=== PATIENT | female | born 1940 | race Caucasian/White ===

== ENCOUNTER → 2018-08-20 15:01 | Outpatient (CLI) | payer MEDICARE, SELFPAY ==
--- NOTE | 2018-08-20 | DI.MG.S_ITS ---
BILATERAL DIGITAL SCREENING MAMMOGRAM 3D/2D WITH CAD POST LUMPECTOMY: 08/20/2018 CLINICAL: Routine screening. Personal history of left breast cancer. Comparison is made to exams dated: 08/19/2017 mammogram, 08/07/2016 mammogram, and 08/04/2015 mammogram - [facility]. There are scattered fibroglandular elements in both breasts. Current study was also evaluated with a Computer Aided Detection (CAD) system. There are benign post operative findings in the left breast. There also is a benign biopsy clip in the right breast. No significant masses, calcifications, or other findings are seen in either breast. There has been no significant interval change. IMPRESSION: There is no mammographic evidence of malignancy. A 1 year screening mammogram is recommended. This exam was interpreted at Station ID: [id number]. NOTE: For mammograms, a report in lay terms will be sent to the patient. Approximately 15% of breast malignancies will not be visualized mammographically. In the management of a palpable breast mass, a negative mammogram must not discourage biopsy of a clinically suspicious lesion. Electronically Signed By: Mj nino/yumi:08/20/2018 17:10:27 copy to: COY MONTILLA letter sent: Normal Exam ACR BI-RADS Category 2: Benign Finding(s) 3342F
== END ==
PROVIDERS: PCP Physician Assistant; Visit Provider Physician Assistant
DX: Z12.31 Encounter for screening mammogram for malignant neoplasm of breast (principal); Z85.3 Personal history of malignant neoplasm of breast
CPT/HCPCS: 77063; 77067

== ENCOUNTER → 2018-09-22 12:12 | Oncology outpatient (ONC) | payer MEDICARE, SELFPAY ==
--- NOTE | 2018-09-22 12:37 | ONC.APRN.PN ---
PN -Subjective Interval history: The patient is a 77 year old Female who is being seen in the clinic 09/22/2018 for surveillance. 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 pt did try tamoxifen, had untolerable side effects she elected to DC, then she started taking once again, had untolerable side effects and DC'd prior to appointment 10/03/2016. Over all the pt reports she is doing well. No weight loss, no new lumps or bumps. No fatigue, cough, fever, chills. No nausea, abd pain. Appetite stable, weight stable. No changes with bladder/bowel. PCP watches her blood sugars . She had a bilateral screening mammogram 08/20/2018 which was without any evidence of malignancy. One year screening mammogram is recommended. Past Medical History The patient's past medical history is significant for: 1. 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 2. Wide local excision 11/25/2013 with a less than 1 mm focus of high-grade DCIS 0.5 cm from the closest margin and no invasive malignancy. 3. Bilateral breast reduction, 2000 or 2001. 4. A&P repair with hysterectomy at age 30. 5. AB 0. 6. Other surgeries, hypertension, and hot flashes in her 50s. Past Surgical History The patient's past surgical history includes: 3. Bilateral breast reduction, 2000 or 2001. 4. A&P repair with hysterectomy at age 30. Home Medications and Allergies Home Medications Medication Instructions Recorded Confirmed Type calcium carbonate 600 mg PO TID #0 09/26/17 History Vitamin D3 4,000 units 09/22/18 History aspirin 650 mg PO Q4-6H PRN 09/22/18 09/22/18 History benazepril-hydrochlorothiazide 1 tab PO DAILY 09/22/18 09/22/18 History [Lotensin HCT] diclofenac sodium [Voltaren] 09/22/18 History omega 9-cxo-ksx-fish oil [Fish Oil] 09/22/18 History potassium chloride 10 meq PO DAILY 09/22/18 09/22/18 History Allergies Allergy/AdvReac Type Severity Reaction Status Date / Time oxycodone Allergy Mild RASH Unverified 01/29/18 12:27 adhesive AdvReac Mild RASH Unverified 01/29/18 12:27 Exam - Constitutional positive no acute distress - Routine HEENT Exam Eye: Present: conjunctivae pink. Absent: conjunctival icterus, scleral injection ENT: Present: mucous membranes moist, oropharynx clear - Routine Neck Exam Present: supple. Absent: lymphadenopathy - Routine Chest/Breast/Axilla Exam Chest wall exam standard: Absent: tenderness, mass Breast: Absent: mass, swelling, erythema Axillae: Absent: lymphadenopathy, mass, tenderness - Routine Respiratory Exam Present: Clear to auscultation bilaterally. Absent: rales, rhonchi, wheezes - Routine Cardiovascular Exam Present: RRR, S1, S2. Absent: murmur, gallop, rubs, JVD - Routine Abdominal Exam Present: soft, normoactive bowel sounds. Absent: tenderness, distended, organomegaly, mass - Routine Extremities Exam Absent: edema, calf tenderness - Routine Skin Exam Present: intact. Absent: petechiae, rash - Routine Neurological Exam Present: alert, oriented X3 - Routine Psychiatric Exam Present: normal affect Results - Imaging Additional studies: Procedures Other diagnostic procedures on breast (11/25/13) Subtotal mastectomy (11/25/13) Assessment and Plan (1) DCIS (ductal carcinoma in situ) of breast Current visit: Yes Status: Acute The patient is a 77-year-old female who carries a diagnosis of DCIS. She presents today for surveillance visit. Reassuringly she has no clinical signs or symptoms of disease recurrence. Previously she had elected to discontinue tamoxifen due to intolerable side effects. This was discussed again at her visit today she has no desire to take tamoxifen. She understands taking tamoxifen would reduce her risk of recurrence. Patient states Its a quality of life issue. Mammogram August 20, 2018 was without evidence of malignancy. Recommendation is continue with annual screening mammography. RTC in one year for provider visit. Pt has appt next week for annual wellness with PCP at [facility] - Time Spent with Patient 25 mins
[2018-09-22 12:46] VITALS: BP 142/78; PULSE 68; RESP 18; TEMP 36.2; O2SAT 97
== END ==
PROVIDERS: PCP Physician Assistant; Visit Provider Nurse Practitioner Gerontology
DX: Z09 Encounter for follow-up examination after completed treatment for conditions other than malignant neoplasm (principal); Z86.000 Personal history of in-situ neoplasm of breast
CPT/HCPCS: 99214

== ENCOUNTER → 2019-07-07 11:04 | Outpatient (CLI) | payer MEDICARE, SELFPAY ==
--- NOTE | 2019-07-07 | DI.MRI.S_ITS ---
PROCEDURE: MR LUMBAR SPINE WO CON INDICATIONS: Radiculopathy, lumbar region TECHNIQUE: Noncontrast sagittal T1 spin echo and T2 fast echo, sagittal STIR, axial T1 and T2 fast spin echo through the lumbar spine. In cases with scoliosis, additional coronal T2 fast spin echo may be performed. COMPARISON: None. FINDINGS: Image quality: Excellent. Alignment and Curvature: There is mild to moderate levoconvex scoliosis. Minimal retrolisthesis is seen at the L2-L3 and L5-S1 levels. Bone Marrow: Marrow is of normal overall signal. No acute vertebral body compression fractures. Spinal Cord: Conus medullaris terminates at the L1 level. Visualized cord demonstrates normal signal and size. Paraspinous Soft Tissues: No paravertebral masses. Incidental note is made of a retroaortic left renal vein. T12-L1: Normal appearance. L1-L2: Moderate to severe loss of disc height and disc signal can be seen on the right. Moderate bilateral neural foraminal narrowing is seen, right worse than left. There is moderate right-sided and mild left-sided facet hypertrophy seen in mild to moderate central canal narrowing is seen. L2-L3: Severe loss of disc height and disc signal can be seen on the right side. Reactive marrow endplate changes are seen, which are hyperintense on T1-weighted and T2-weighted imaging and most consistent with fatty metaplasia (Modic type II changes). There is moderate to severe right-sided neural foraminal narrowing, with associated minimal compression upon the exiting right L2 nerve root. There is moderate left-sided neural foraminal narrowing seen. Moderate central canal narrowing is seen. L3-L4: Moderate loss of disc height and disc signal can be seen on the left. Prominent facet hypertrophy is seen. Moderate to severe left-sided neural foraminal narrowing is seen, with associated exiting left L3 nerve root compression. There is moderate right-sided neural foraminal narrowing seen. Moderate to severe central canal narrowing is in, as on series 5 image 18. L4-L5: The disc height is well-preserved. Loss of disc signal is seen at this level. Mild to moderate disc bulge is seen. Prominent facet hypertrophy is seen. There is mild to moderate left-sided and mild right-sided neural foraminal narrowing seen. Mild to moderate central canal narrowing is seen. L5-S1: Moderate to severe loss of disc height and disc signal are seen. Moderate disc bulge is seen, which is eccentric to the left. There is a focal annular fissure seen posteriorly. No significant right-sided neural foraminal narrowing is seen. No central canal narrowing is seen. IMPRESSION: Multiple levels of lumbar spine degenerative change are seen, which are most prominent at L2-L3 and L3-L4. Moderate levoconvex scoliosis. Dictated by: Tung Obrien M.D. on 07/07/2019 at 12:20 Approved by: Tung Obrien M.D. on 07/07/2019 at 12:25
== END ==
PROVIDERS: PCP Specialist; Visit Provider Orthopaedic Surgery
DX: M47.26 Other spondylosis with radiculopathy, lumbar region (principal); M41.9 Scoliosis, unspecified
CPT/HCPCS: 72148

== ENCOUNTER → 2019-08-26 11:49 | Outpatient (CLI) | payer MEDICARE, SELFPAY ==
--- NOTE | 2019-08-26 | DI.MG.S_ITS ---
BILATERAL DIGITAL SCREENING MAMMOGRAM 3D/2D WITH CAD POST LUMPECTOMY: 08/26/2019 CLINICAL: Routine screening. Personal history of left breast cancer. Family history of breast cancer. Comparison is made to exams dated: 08/20/2018 mammogram, 08/19/2017 mammogram, and 08/07/2016 mammogram - [facility]. There are scattered fibroglandular elements in both breasts. Current study was also evaluated with a Computer Aided Detection (CAD) system. There is a biopsy clip in the right breast. There also are benign post operative findings in the left breast. No significant masses, calcifications, or other findings are seen in either breast. There has been no significant interval change. IMPRESSION: There is no mammographic evidence of malignancy. A 1 year screening mammogram is recommended. This exam was interpreted at Station ID: [id number]. NOTE: For mammograms, a report in lay terms will be sent to the patient. Approximately 15% of breast malignancies will not be visualized mammographically. In the management of a palpable breast mass, a negative mammogram must not discourage biopsy of a clinically suspicious lesion. Electronically Signed By: Thom juan/yumi:08/26/2019 14:29:47 copy to: COY MONTILLA copy to: ANNA FIGUEROA letter sent: Normal Exam ACR BI-RADS Category 2: Benign Finding(s) 3342F
== END ==
PROVIDERS: PCP Specialist; Visit Provider Specialist
DX: Z12.31 Encounter for screening mammogram for malignant neoplasm of breast (principal); Z85.3 Personal history of malignant neoplasm of breast; Z80.3 Family history of malignant neoplasm of breast
CPT/HCPCS: 77063; 77067

== ENCOUNTER → 2019-11-06 07:55 | Outpatient (CLI) | payer MEDICARE, SELFPAY ==
--- NOTE | 2019-11-06 | DI.NM.S_ITS ---
PROCEDURE: NM ROSIE PERF SPECT R&S PHARM Rest and pharmacological stress myocardial perfusion SPECT with gated imaging and ejection fraction RADIOPHARMACEUTICAL: 24.2 mCi Tc-99m tetrafosmin IV at rest and 24.2 mCi Tc-99m tetrafosmin IV at peak effect of pharacological stress. Jou-wqj-cpajelry was performed. INDICATIONS: Abnormal electrocardiogram [ECG] [EKG] TECHNIQUE: Radiopharmaceutical was injected at peak stress test, and also at rest. SPECT images were obtained. SPECT myocardial perfusion images were displayed in short axis, horizontal long axis, and vertical long axis views. Gated images were reviewed using [employer] software. COMPARISON: None. CARDIAC STRESS: A pharmacologic stress test was performed under the supervision of an attending staff, using an infusion of lexiscan 0.4mg IV X1. Hemodynamic data: There is normal blood pressure and heart rate response to pharmacologic stress. Symptoms: The patient denied anginal chest pain. Aminophylline: none EKG: Sinus rhythm with minimal horizontal ST depressions in the inferior and anterolateral leads at rest that worsen to 1-2mm downsloping ST depressions with lexiscan. These changes are probably due to baseline ST changes; no ectopy. FINDINGS: Raw data: There is good myocardial uptake of radiotracer. No significant motion artifacts. Odcz-on-umijm ratio is 0.36 (normal is less than 0.38 for tetrafosmin tracer). Left ventricle function: Gated images demonstrate normal left ventricular wall thickening. No segmental wall motion abnormalities. No transient ischemic dilation; TID is 0.75 (normal less than 1.3). Left ventricle resting end diastolic volume is 75 mL. Left ventricle stress ejection fraction is 95%; normal range is above 45%. Myocardial perfusion: There is normal distribution of activity in the right and left ventricular myocardium. No fixed or reversible perfusion defects. IMPRESSION: Low risk, normal pharmaceutical nuclear stress test 1) No perfusion evidence of ischemia or infarction. 2) Normal left ventricular size, wall motion, and systolic function (EF post stress over calculated at 95%). 3) ECG non-diagnostic due to baseline changes. Sinus rhythm with minimal horizontal ST depressions in the inferior and anterolateral leads at rest that worsen to 1-2mm downsloping ST depressions with lexiscan. 4) No angina during the study.. 5) No prior nuclear stress test available for comparison. Dictated by: Valerie Chopra MD on 11/09/2019 at 13:00 Approved by: Valerie Chopra MD on 11/09/2019 at 13:04
== END ==
PROVIDERS: PCP Internal Medicine; Visit Provider Internal Medicine
DX: Z01.810 Encounter for preprocedural cardiovascular examination (principal); R94.31 Abnormal electrocardiogram [ECG] [EKG]
CPT/HCPCS: 78452; 93017; A9502; J2785

== ENCOUNTER 2019-11-23 10:12 | Inpatient (IN) | payer MEDICARE, SELFPAY ==
[2019-11-06 16:12] VITALS: BMI 36.2
[2019-11-23] VITALS (18 sets, daily range): BP systolic 86–194; BP diastolic 35–98; PULSE 71–88; RESP 10–20; TEMP 36–36.6; O2SAT 94–100; BMI 36.2
--- NOTE | 2019-11-23 | DI.RAD.S_ITS ---
PROCEDURE: XR LUMBAR SPINE 2-3V INDICATIONS: L1-2/ L3-4 TLIF W/ ANTERIOR INSTRUMENTATION TECHNIQUE: Fluoroscopic images were obtained during an operative procedure and submitted for interpretation following the completion of the procedure. COMPARISON: [facility], CR, XR LUMBAR SPINE 2 OR 3 VIEWS, 04/24/2019, 13:51. FINDINGS: These fluoroscopic images were performed for intraoperative localization. On these images, bilateral pedicle screws are seen at L1, L2, and L3. The screws appear well placed. Vertical fixation rods are seen. Disc spacers are seen at L1-L2 and L2-L3. Please correlate with intraoperative findings. IMPRESSION: Normal intraoperative examination. Dictated by: Tung Obrien M.D. on 11/23/2019 at 18:34 Approved by: Tung Obrien M.D. on 11/23/2019 at 18:35
[2019-11-23] MEDS: LACTATED RINGERS 1,000 ML 42 ML IV ×2 (10:56→14:42)
--- NOTE | 2019-11-23 12:21 | PM.PREOP ---
Pre-operative Note Interval Note History & Physical reviewed/Exam performed by Physician: Yes Changes to H&P: No
[2019-11-23] MEDS: APREPITANT 40 MG CAPSULE PO (13:22)
[2019-11-23] MEDS: CEFAZOLIN 2 GM/100 ML FROZ.PIGGY IV ×2 (13:25→21:16)
[2019-11-23] MEDS: BUPIVACAINE 0.25% W/ EPI 30 ML VIAL INJ ×2 (13:59→14:03)
[2019-11-23] MEDS: BUPIVACAINE LIPOSOME 266 MG/20 ML VIAL INJ (14:00)
--- NOTE | 2019-11-23 14:09 | SUR.OPER ---
Prone on spine table, head in foam head support, padded chest and pelvic supports, gel pad at knees, lower legs supported by pillows; nipples, genitalia and toes free of pressure, arms secured on foam padded arm boards at <90 degrees abduction. Tape over blanket at thigh secured to table.
[2019-11-23] MEDS: ACETAMINOPHEN IV 1,000 MG/100 ML VIAL 400 MG IV (15:10)
[2019-11-23] MEDS: SODIUM CHLORIDE 0.9% 1,000 ML 84 ML IV (17:03)
[2019-11-23] MEDS: HYDROMORPHONE 2 MG INJ IV ×8 (18:14→19:40)
[2019-11-23] MEDS: fentaNYL 100 MCG/2 ML INJ IV ×2 (18:16→18:29)
--- NOTE | 2019-11-23 19:57 | SUR.PHASEI ---
Gave IV pain medication for increased levels of pain medication. Tolerating po. Denies nausea.
[2019-11-23] MEDS: ONDANSETRON 4 MG/2 ML INJ IV (20:12)
--- NOTE | 2019-11-23 20:15 | SUR.PHASEI ---
Gave ondansetron for nausea.
[2019-11-23] MEDS: LORazepam 2 MG/ML INJ 0.5 MG IV (21:15)
[2019-11-23] MEDS: SODIUM CHLORIDE 0.9% 1,000 ML 100 ML IV (21:16)
[2019-11-23] MEDS: HYDROMORPHONE 0.5 MG INJ IV (22:05)
--- NOTE | 2019-11-23 22:47 | PC.NURSE ---
Admit/Evening Shift Note- Patient arrived to room via bed from pacu at 2025. Patient alert and oriented and able to make needs known to staff. Patient c/o nausea and did vomit 3 times with movement. IV zofran given in pacu prior to transfer, nausea not affected. Called MD valenzuelaing the N?V and recieved new order for IV ativen 0.25-0.5mg Q6H. IV ativan given to patient, patient reports nausea decreasing. 2100 PO meds held due to N/V. IV Dilaudid given for pain. Patient tolerated. Admit questions done, home medications reviewed, and physical assessment done. Oriented patient to bed and bed controls, and call meléndez/tv remote. safety measures in place. call meléndez and phone withi reach. will continue to monitor,
[2019-11-24] VITALS (7 sets, daily range): BP systolic 113–149; BP diastolic 63–80; PULSE 70–86; RESP 16–19; TEMP 36.2–37.4; O2SAT 95–100
[2019-11-24] MEDS: ONDANSETRON 4 MG/2 ML INJ IV ×2 (00:30→05:01)
[2019-11-24] MEDS: HYDROMORPHONE 0.5 MG INJ IV ×3 (01:23→06:53)
[2019-11-24] MEDS: LORazepam 2 MG/ML INJ 0.5 MG IV ×2 (03:54→11:09)
[2019-11-24] MEDS: CEFAZOLIN 2 GM/100 ML FROZ.PIGGY IV (04:57)
[2019-11-24 06:17] LABS: Hemoglobin 10.9 g/dL (12.0-16.0)
[2019-11-24] MEDS: SODIUM CHLORIDE 0.9% 1,000 ML 100 ML IV (06:57)
--- NOTE | 2019-11-24 07:45 | P.PN_ITS ---
Subjective Subjective Date Patient Seen: 11/24/19 Interval history: Patient is POD#1 s/p L1-2, L2-[address] Kumari. Significant nausea overnight with several episodes of emesis that did not respond to Zofran. Call was placed to MD and order given for Ativan, some relief with this. Contin ues to note some nausea this morning but has improved. Pain has been moderate to severe. Only using IV Dilaudid with spotty control due to not tolerating PO at this time. Exam Vital Signs (past 8 hours): - 11/24/19 04:00 11/24/19 07:10 Temperature 97.7 F Pulse Rate 78 Respiratory Rate 18 Blood Pressure 149/80 H Pulse Oximetry 98 95 Oxygen Delivery Method Room Air Oxygen Flow Rate 0 Narrative Exam Narrative: 78 year old female resting in bed. Alert and oriented in no acute distress. Dressing in place over lumbar spine is CDI. 5/5 BLE. Calves soft, compressible. Palpable pedal pulses. Objective Labs Result Diagrams: 11/24/19 05:50 Labs: Laboratory Results - last 24 hr 11/24/19 05:50 Hgb 10.9 L Hct 33.0 L Assessment & Plan Assessment & Plan narrative: Patient progressing as expected postoperatively. Continue to work with PT. Will continue to treat nausea, encourage patient to retry small sips of water and crackers. Transition to PO medications today if able. Patient has significant rash with oxycodone in the past. Will try to manage pain with Calvert, but Dilaudid 2mg PO added for severe pain. Quality VTE Deep Vein Thrombosis/Pulmonary Embolism Present on Admission: No
[2019-11-24] MEDS: HYDROCODONE/ACET 5/325 TABLET 2 TAB PO ×4 (08:29→20:44)
--- NOTE | 2019-11-24 08:31 | CM.DANOTE ---
Addendum entered by Emily Noland LPN 11/24/19 08:46: Met with pt as planned. She is found lying in bed, wet cloth to forehead. Alert and very agreeable to talk. Pt confirms she is functionally independent at baseline. Drives. Is mobile without assistive device. P: pt's sister Gerardo Menezes [phone] will be staying with her after she leaves the hospital for prn assistance. Pt also says she has lots of support from others if more help is needed, including my yarsani family. DCP team will follow to make sure this plan is doable and assist prn with any needs that may arise. Original Note: Discharge Planning/Care Management DCP: assessment: case received, EMR reviewed and pre-op assessment from 11/06: GISELLE is noted/see that template below. Pt is an 78 year old female who admitted yesterday for a planned spinal/lumbar region surgery. Surgeon: Dr. Kumari. PCP: Amilcar Menjivar Payer: Medicare [facility] Admission status: in review: per UR EMILY Barker. Pt arrived to room 208 from PACU last night at 20:26. PT and OT are ordered but pt has not yet been seen. Her pre-op plan indicates she plans to d/c to home setting with her sister to assist her. She does live alone in a mobile home in [place]. P: meet with pt for introduction of self and role. Discuss in Team Rounds. Follow accordingly to assist with d/c issues and options. CM Discharge Assessment Start: 11/24/19 08:30 Freq: Status: Active Protocol: Document 11/24/19 08:30 ITV (Rec: 11/24/19 08:31 ITV [id number]) Discharge Planning Assessment History Provided By Medical Record Prior Living Arrangements Mobile home Household Members none Whiteboard Updated in Patient Room with Yes name and ext. # of Inseminator Review Status In Process Pre-Anesthesia Assessment Start: 11/06/19 16:12 Freq: Status: Complete Protocol: Document 11/06/19 16:12 VLJ (Rec: 11/06/19 16:59 VLJ [id number]) Pre-Anesthesia Assessment Preferred Name Anita Patient Information Reviewed Via Chart Review Assessment Completed With Patient Primary Care Provider Amilcar Menjivar Seen Specialist in Last 12 Months Yes Specialist Seen Orthopedist Comment Dr. Shanks - knee injections Primary Language Khmer Hand Riveter Required No Height 157.48 cm Weight 89.811 kg Body Mass Index (BMI) 36.2 Hearing Ability Normal Visual Impairment Partially Limited Visual Assist Glasses Dentition Type Teeth, Natural Present Barriers to Learning Visual Other Aids No Comment reading glasses Hx Anesthesia Reactions Yes: Violently ill, pre-op anxiety Hx Family Anesthesia Reaction No Hx Malignant Hyperthermia No Hx Blood Transfusions No Hx Blood Transfusion Reaction No Anesthesia Review Requested No Informatics Physician No Alcohol Intake Frequency Other: rare Smoking Status Former smoker Tobacco type cigarettes Has it been 2 weeks or less since No patient quit smoking how long ago did patient quit smoking 1997 Smoking pack-years 45 Substance Use Type does not use Pain Present Pain Reported Comment back Musculoskeletal Symptoms Abnormal Gait,Back Pain, Difficulty Walking,Limited Range of Motion,Muscle Spasms, Radiating Pain into Limb History of Falling (Recent or History of No ) Patient is completely paralyzed or Yes completely immobile Ambulatory Aid None/bed rest/nurse assist Gait/Transferring Normal/bedrest/immobile Mental Status Oriented to own ability Is patient on oxygen? No Does patient have GOMEZ/SOB No Hx Sleep Apnea No CPAP/BIPAP use not prescribed Will Bring CPAP/BIPAP DOS No Currently Taking a Beta Melida No Can You Climb a Flight of Stairs Without No SOB Hx Chest Pain No Hx SOB No Hx Syncope or Dizziness No Anti-Coagulant Therapy No Has a Business Intelligence Engineer No Cardiac Testing Yes: Nuc Stress 11/06/19 IH Hx Pacemaker/ICD No Pacemaker Rep Required? No Cardiac Clearance Received Not Applicable Diet Type At Home Regular,Low Carb dysphagia No Bladder Pattern Incontinent, Stress Urinary Catheter Present No Hx Urinary Self Catheterization No Diabetes No Patient No Lactating No Hx Drug Resistant Organism No Presence of External or Internal Medical No Devices Have you traveled outside the [facility] in the last 30 days? Marital Status Lives With none Prior Living Arrangements Mobile home Number of Floors (Floors) One Floor Number of Stairs To Enter/Railing? 5 steps into door w/5 rise w/ handrail Support System Brenda/God,Family,Friend(s), Sibling(s) Does the Patient Have Assistance After Yes Surgery Patient Discharge Plan Description Home Health Comment sister visiting to help her post-op Feels Safe in Current Environment Yes Been Physically Hurt or Threatened By a No Person in Current Environment Do you have thoughts of harming yourself None or others? Are you currently considering suicide? No Do you have a plan to hurt yourself or No Plan others? Do You Have Any Spiritual Beliefs That No May Affect Your HC Choices? Do You Have Any Cultural Practices That No May Affect Your HC Choices? Spiritual Referral None Comment Franky, her hand bander will be there Who Can We Speak to About Patient's Care Friends & Family Identifying Code for Release of Patient Declined Information Health Care Proxy/Next of Kin Sister - Gerardo Cook Health Care Proxy Emergency Contact Name Sister - Gerardo Cook Emergency Contact Comment Nadia - Ton Byers ; Emory Byers [phone] Advance Directives? Yes Advance Directives on File No Requested Patient Bring Advanced Yes Directives DOS Power of Supervisor Hand Workers Yes Power of Supervisor Hand Workers Name Emory Byers Power of Supervisor Hand Workers PAC Instructions Assistance for 24 hours post- op,Do not shave/clip surgical site,Durable medical equipment ,Medications to take/avoid, Nasal antibiotic,No ETOH/ petroleum product on skin DOS, NPO,Ortho class,Post-op transportation,Pre-op antibiotic,Pre-surgical wash, Sensory aids,Sturdy shoes/ comfortable clothes,Do not bring valuables and remove jewelry
--- NOTE | 2019-11-24 10:24 | PT.IIE ---
Current Diagnoses Other idiopathic scoliosis, lumbar region (11/23/19) Spondylolisthesis, lumbar region (11/23/19) Spinal stenosis, lumbar region with neurogenic claudication (11/23/19) Surgery Performed Operation Date: 11/23/19 12:15 Actual Procedures p L1-2, L2-3 TLIF with posterior instrumentation - Varinder Kumari MD Surgical History (Last Updated 11/06/19 @ 16:39 by Mamta Jain, RN) H/O bilateral breast reduction surgery (Acute) H/O subtotal mastectomy (Acute) History of carpal tunnel release of both wrists (Acute) History of cholecystectomy (Acute ~1988) History of hysterectomy (Acute) S/P breast biopsy, right (Acute) S/P epidural steroid injection (Acute) S/P trigger finger release (Acute) Status post blepharoplasty of both eyes (Acute) Medical History (Last Updated 11/06/19 @ 16:39 by Mamta Jain, RN) Back pain (Acute) Degenerative lumbar disc (Acute) Ductal carcinoma in situ (DCIS) of left breast (Acute) History of tennis elbow (Acute) Hypertension (Acute) Idiopathic scoliosis of lumbar region (Acute) Spinal stenosis, lumbar region with neurogenic claudication (Acute) Spondylolisthesis at L2-L3 level (Acute) Thinning hair (Acute) Physical Therapy Inpatient Evaluation/Re-Eval M1 PT/OT-IP Prior Functional Status Start: 11/24/19 13:30 Freq: NEEDED Status: Active Protocol: Document 11/24/19 10:24 AB (Rec: 11/24/19 13:51 AB [id number]) Medical Review Prior Functional Status Medical History Reviewed Yes Communication able to make needs known Mobility and Gait pt stated that she is independent with all mobilities and ambulation without AD Social History Household Members none Living Arrangements Mobile home Number of Floors (Floors) One Floor Number of Stairs To Enter/Railing? has 5 steps with R rail ascending to enter Home Environment High Toilet,Walk in Shower Home Equipment Hand Held Shower Additional Social History Comment walking sticks has a 3WW stated that her sister will stay and assist her ; sister stated that she will stay with pt as long as needed M2 PT-IP Current Condition Start: 11/24/19 13:30 Freq: NEEDED Status: Active Protocol: Document 02/04/20 10:24 AB (Rec: 11/24/19 13:51 AB [id number]) Physical Therapy Current Condition Current Condition Evaluation Date 11/24/19 Treatment Diagnosis s/p L1-2 TLIF; difficulty in walking Onset Date 11/23/2019 Precautions Lumbar Precautions Log Roll,No Twisting,Limit Bending,Lifting Restriction of 10 lbs,Gait Belt above Incisional Area M3 PT-IP Subjective Start: 11/24/19 13:30 Freq: NEEDED Status: Active Protocol: Document 11/24/19 10:24 AB (Rec: 11/24/19 13:51 AB [id number]) Subjective Physical Therapy Visit Type Type Initial Evaluation Visit Start Time 10:24 Visit Stop Time 11:04 Total Visit Minutes 40 Number of BROADBAND TECHNICIAN Visits 0 Physical Therapy Visit Comments Patient Comments pt initially stated that she cannot move; informed pt that PT will assist her and agreed to move Therapy Pain Assessment Pain When Pain Assessed At Rest Pain Present Pain Present Pain Reported Location Back Intensity 7 Scale Used 10/10 with mobility Pain Behaviors Guarding Pain Management Techniques Apply Cold,Re-positioning, Timing of Activity with Medications M4 PT-IP Mobility and Gait Start: 11/24/19 13:30 Freq: NEEDED Status: Active Protocol: Document 11/24/19 10:24 AB (Rec: 11/24/19 13:51 AB [id number]) PT-Bed Mobility Assessment Rolling Type of Rolling Log Rolling Level of Assist Maximal Assistance,1 Person Assistance Supine to Sit Supine to Sit Moderate Assistance,1 Person Assistance,Bedrails Scooting Scooting to Edge of Bed Maximum Assistance PT-Transfer Assessment Sit to and From Stand Sit to and from Stand Moderate Assistance,1 Person Assistance,Use of Upper Extremities Equipment Transfer Assistive Device Gait Belt,Front Wheeled Walker Orthotic/Prosthetic Devices or Brace: No Transfers Transfer Destination Chair Transfer Technique Stand Step Pivot Transfer Ability Level of Assist Moderate Assistance,1 Person Assistance,Use of Upper Extremities Comments Mobility Comments pt hesistant to move; stated that she cannot do it but agreed to do PT after encouragement and educated pt to try to move with PT's assist. educated pt on back precautions and log roll. stated that she has PT for her back prior and knows how to do log roll bed mobility. BP: 133/79. completed log roll to the L requiring max A and cues. pt pulled on bed rail and stated that she has some material on her bed at home that she can zechariah to pull herself. pt completed supine to sit mod A and cues. pt was able to sit on EOB CGA. required max A for scooting to EOB and positioning. pt completed sit to stand mod A and cues. pt was able to maintain standing min A and completed step transfer to the chair mod A and cues using FWW. pt c/o nausea. BP: 144/ 73. positioned pt on chair. ice pack provided. No other complaints aside from nausea. Left pt with nurse. call light and table placed within reach. Gait Assessment Gait Gait Assistance Required: Moderate Assistance Able to Maintain Weight Bearing Status No During Gait Assistive Devices Assistive Device Gait Belt,Front Wheeled Walker Gait Deviations General Gait Pattern Antalgic Factors Limiting Gait Function Factors Limiting Gait Function Decreased Activity Tolerance, Decreased Strength,Limited Range of Motion,Pain,Poor Balance,Poor Safety Awareness Comments Gait Comments took steps during transfers but unable to ambulate farther due to c/o nausea PT-Balance Assessment Sitting Balance and Reactions Static Sitting Balance Ability Good Dynamic Sitting Balance Ability Fair Standing Balance and Reactions Static Standing Balance Ability Fair Dynamic Standing Balance Ability Poor Device Used FWW M5 PT-IP Objective Assessments Start: 11/24/19 13:30 Freq: NEEDED Status: Active Protocol: Document 11/24/19 10:24 AB (Rec: 11/24/19 13:51 AB [id number]) Orientation Orientation/Cognition Level of Alertness Alert Orientation Name,Age,Birthday,Month,Date, Year,Day of Week,Place, Situation Safety Awareness Decreased Safety Awareness Gross Range of Motion Lower Extremity ROM Assessment Within Functional Limits Strength Lower Extremity Strength Assessment Bilaterally Impaired Hip 3+/5 Knee 3+/5 Coordination Assessment Gross Coordination Gross Coordination WNL Sensation Assessment Sensation Gross Sensation WNL Muscle Tone Muscle Tone WNL Yes M6 PT-IP Treatment Start: 11/24/19 13:30 Freq: NEEDED Status: Active Protocol: Document 11/24/19 10:24 AB (Rec: 11/24/19 13:51 AB [id number]) Physical Therapy Treatment Education Education Provided Precautions,Weight Bearing Status,Post-Op Packet,Safety M7 PT-IP Assessment and Plan Start: 11/24/19 13:30 Freq: NEEDED Status: Active Protocol: Document 11/24/19 10:24 AB (Rec: 11/24/19 13:51 AB [id number]) PT Summary Assessment and Plan Potential Rehabilitation Potential Good Status of Condition at Evaluation Evolving Summary Impairments Pain,ROM,Strength,Balance, Coordination,Sensation,Tone, Cognition,Bed Mobility, Transfers,Gait,Activity Tolerance Assessment Summary pt c/o increase back pain affecting mobility and activity tolerance. d/c plan depending on progress. pt plans to go home and her sister will be at home to assist her. will conduct caregiver training when appropriate. pt also has 5 steps to enter the house and stair training has to be completed prior to d/c home. will continue to monitor progress but currently, pt unable to ambulate due to c/o nausea and did not tolerate much activity. will continue to monitor. Goals Bed Mobility Goal Standby Assistance Transfer Goal Standby Assistance,Front Wheeled Walker Gait Goal Standby Assistance,Front Wheel Walker Gait Distance 150 Other Goals up/down 5 steps R rail ascending SBA Days to Meet Goals 10 Frequency of Treatment Frequency Of Treatment Twice a Day Treatment Plan Physical Therapy Treatment Plan Bed Mobility Training,Transfer Training,Gait Training, Therapeutic Exercise,Balance Retraining,Post Op Education, Discharge Planning,Hot or Cold Pack,Neuromuscular Re-ed, Coordination Retraining,Manual Therapy Other Recommendations and Next Treatment ambulation, caregiver training Focus when appropriate Recommendations To Nursing Amount of Assist Needed 1 Person Assist Discharge Recommendations PT Discharge Recommendations Home with 24/7 Assist,Home Health,SNF Rehab Other Discharge Recommendations depending on progress: SNF vs home with 24/7 and HHPT Transportation Needs at Discharge Private Vehicle,Wheelchair/ Cabulance
[2019-11-24] MEDS: DOCUSATE 100 MG CAPSULE PO ×2 (10:26→20:46)
[2019-11-24] MEDS: ACETAMINOPHEN 325 MG TABLET 650 MG PO (10:26)
[2019-11-24] MEDS: hydrOXYzine pamoate 25 MG CAPSULE PO ×2 (10:26→14:31)
--- NOTE | 2019-11-24 13:47 | PC.NURSE ---
Addendum entered by Cecilia Crawford R.N. 11/24/19 14:49: Spoke with SERGIO Neves at 1445, Foot SCD's to continue at this time, no further orders. Pura placed order for Scopolamine patch in eMAR. Zyrtec is non-formulary, continue with scheduled ordered Claratin for now. Pt states pain across lower back, not radiating to hips or legs anymore, 10/10 with movement, pt aware may need another dose of [place] prn prior to switching pain mediation as may be having to catch up on pain due to nausea this AM, pt agreeable. Pt aware SERGIO Neves will likely check in on pt this afternoon. 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 Original Note: Day SHift- Pt A&OX4, call light within reach. Moderate to severe nausea throughout shift. Severe nausea at 1100 after working with PT and getting to chair. Pt was gagging, dry heaving, no emesis. IV pRN Ativan given at 1110 with satisfactory effect. Pt stated she had nausea after the movement to chair as pain was 10/10 with movement to her back, radiating to bilateral hips and intermittently to right thigh. Pain management plan discussed, Once pt able to tolerate small bites of applesauce, PRN [place] 2 tabs given at 0835, no change in pain levels. 2nd dose of [place] 2 tabs given at 1220. PRN Vistaril given at 1030 for nausea and pain management. Pt had small amount of soup for lunch, appears to be in better spirits, more interactive. Message left at 1320 with SERGIO Neves regarding possible request for Scopalamine patch?, Any further DVT prophylaxis besides foot SCD's? and to reorder pt's home med of Cetriazine.
[2019-11-24] MEDS: CALCIUM CARBONATE 600 MG TABLET PO ×2 (14:31→20:47)
[2019-11-24] MEDS: SCOPOLAMINE 1 PATCH TOP (16:10)
--- NOTE | 2019-11-24 16:45 | PT.IPTN ---
Current Diagnoses Other idiopathic scoliosis, lumbar region (11/23/19) Spondylolisthesis, lumbar region (11/23/19) Spinal stenosis, lumbar region with neurogenic claudication (11/23/19) Surgery Performed Operation Date: 11/23/19 12:15 Actual Procedures p L1-2, L2-3 TLIF with posterior instrumentation - Varinder Kumari MD Physical Therapy Treatment Note M2 PT-IP Current Condition Start: 11/24/19 13:30 Freq: NEEDED Status: Active Protocol: Document 11/24/19 10:24 AB (Rec: 11/24/19 13:51 AB [id number]) Physical Therapy Current Condition Current Condition Evaluation Date 11/24/19 Treatment Diagnosis s/p L1-2 TLIF; difficulty in walking Onset Date 11/23/2019 Precautions Lumbar Precautions Log Roll,No Twisting,Limit Bending,Lifting Restriction of 10 lbs,Gait Belt above Incisional Area M3 PT-IP Subjective Start: 11/24/19 13:30 Freq: NEEDED Status: Active Protocol: Document 11/24/19 16:45 AB (Rec: 11/24/19 17:18 AB [id number]) Subjective Physical Therapy Visit Type Type Treatment Note Visit Start Time 16:45 Visit Stop Time 17:01 Total Visit Minutes 16 Number of ROLLING MILL OPERATOR HELPER Visits 0 Physical Therapy Visit Comments Patient Comments pt agreeable to get up Therapy Pain Assessment Pain When Pain Assessed At Rest Pain Present Pain Present Pain Reported Location Back Intensity 8 Scale Used Numeric (1 - 10) Pain Management Techniques Re-positioning,Timing of Activity with Medications M4 PT-IP Mobility and Gait Start: 11/24/19 13:30 Freq: NEEDED Status: Active Protocol: Document 11/24/19 16:45 AB (Rec: 11/24/19 17:18 AB [id number]) PT-Bed Mobility Assessment Rolling Type of Rolling Log Rolling Level of Assist Maximal Assistance,1 Person Assistance Supine to Sit Supine to Sit Maximum Assistance,1 Person Assistance Sit to Supine Sit to Supine Minimal Assistance,1 Person Assistance Scooting Scooting to Edge of Bed Maximum Assistance PT-Transfer Assessment Sit to and From Stand Sit to and from Stand Moderate Assistance,1 Person Assistance,Use of Upper Extremities Equipment Transfer Assistive Device Gait Belt,Front Wheeled Walker Orthotic/Prosthetic Devices or Brace: No Comments Mobility Comments reviewed back precautions with pt and pt required cues to recall. completed log roll supine to sit max A and max cues. also required max A for scooting in bed. pt was able to sit on EOB SBA . completed sit to stand mod A and cues requiring 2 attempts to complete. ambulated in room ~ 15 ft using FWW CGA to min A. pt does not want to sit up on the chair and want to go back to bed. completed sit to supine min A and cues. positioned pt in bed. call light and table placed within reach. Gait Assessment Gait Gait Assistance Required: Contact Guard Assist,Minimum Assistance Distance (Feet) 15 Able to Maintain Weight Bearing Status Yes During Gait Assistive Devices Assistive Device Gait Belt,Front Wheeled Walker Orthotic/Prosthetic Devices or Brace: No Gait Deviations General Gait Pattern Antalgic,Decreased Stride Length,Decreased Feet Clearance Factors Limiting Gait Function Factors Limiting Gait Function Decreased Activity Tolerance, Decreased Strength,Limited Range of Motion,Pain,Poor Balance,Poor Safety Awareness M5 PT-IP Objective Assessments Start: 11/24/19 13:30 Freq: NEEDED Status: Active Protocol: Document 11/24/19 10:24 AB (Rec: 11/24/19 13:51 AB [id number]) Orientation Orientation/Cognition Level of Alertness Alert Orientation Name,Age,Birthday,Month,Date, Year,Day of Week,Place, Situation Safety Awareness Decreased Safety Awareness Gross Range of Motion Lower Extremity ROM Assessment Within Functional Limits Strength Lower Extremity Strength Assessment Bilaterally Impaired Hip 3+/5 Knee 3+/5 Coordination Assessment Gross Coordination Gross Coordination WNL Sensation Assessment Sensation Gross Sensation WNL Muscle Tone Muscle Tone WNL Yes M6 PT-IP Treatment Start: 11/24/19 13:30 Freq: NEEDED Status: Active Protocol: Document 11/24/19 16:45 AB (Rec: 11/24/19 17:18 AB [id number]) Physical Therapy Treatment Education Education Provided Precautions,Safety M7 PT-IP Assessment and Plan Start: 11/24/19 13:30 Freq: NEEDED Status: Active Protocol: Document 11/24/19 16:45 AB (Rec: 11/24/19 17:18 AB [id number]) PT Summary Assessment and Plan Potential Rehabilitation Potential Good Summary Impairments Pain,ROM,Strength,Balance, Coordination,Sensation,Tone, Cognition,Bed Mobility, Transfers,Gait,Activity Tolerance Progress Towards Goals Slow Progress due to Pain,Slow Progress due to Activity Tolerance Assessment Summary pt continues to c/o increase low back pain affecting mobility and activity tolerance. d/c plan depending if caregiver will be able to assist pt safely. caregiver training will be conducted as soon as appropriate. pt also has steps to get into the house and stair climbing training will be conducted as well prior to d/c. Goals Bed Mobility Goal Standby Assistance Transfer Goal Standby Assistance,Front Wheeled Walker Gait Goal Standby Assistance,Front Wheel Walker Gait Distance 150 Other Goals up/down 5 steps R rail ascending SBA Days to Meet Goals 10 Frequency of Treatment Frequency Of Treatment Twice a Day Treatment Plan Physical Therapy Treatment Plan Bed Mobility Training,Transfer Training,Gait Training, Therapeutic Exercise,Balance Retraining,Post Op Education, Discharge Planning,Hot or Cold Pack,Neuromuscular Re-ed, Coordination Retraining,Manual Therapy Other Recommendations and Next Treatment ambulation, caregiver training Focus and stair training when appropriate Recommendations To Nursing Amount of Assist Needed 1 Person Assist Discharge Recommendations PT Discharge Recommendations Home with 24/7 Assist,Home Health,SNF Rehab Other Discharge Recommendations depending on progress: SNF vs home with 24/7 and HHPT Transportation Needs at Discharge Private Vehicle,Wheelchair/ Cabulance
--- NOTE | 2019-11-24 18:35 | OT.IP.EVAL ---
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) History of tennis elbow (Acute) Hypertension (Acute) Idiopathic scoliosis of lumbar region (Acute) Spinal stenosis, lumbar region with neurogenic claudication (Acute) Spondylolisthesis at L2-L3 level (Acute) Thinning hair (Acute) Surgical History (Last Updated 11/06/19 @ 16:39 by Mamta Jain, RN) H/O bilateral breast reduction surgery (Acute) H/O subtotal mastectomy (Acute) History of carpal tunnel release of both wrists (Acute) History of cholecystectomy (Acute ~1988) History of hysterectomy (Acute) S/P breast biopsy, right (Acute) S/P epidural steroid injection (Acute) S/P trigger finger release (Acute) Status post blepharoplasty of both eyes (Acute) Occupational Therapy Inpatient Evaluation/Re-Eval M1 PT/OT-IP Prior Functional Status Start: 11/24/19 18:39 Freq: NEEDED Status: Active Protocol: Document 11/24/19 18:25 [facility] (Rec: 11/24/19 18:57 [facility] [id number]) Medical Review Prior Functional Status Medical History Reviewed Yes Communication able to make needs known Mobility and Gait pt stated that she is independent with all mobilities and ambulation without AD Activities of Daily Living and IADL's Pt states just mainly having trouble to wash her feet , otherwise independent with Adl , IADl, meds, and money management needs. Social History Household Members none Living Arrangements Mobile home Number of Floors (Floors) One Floor Number of Stairs To Enter/Railing? has 5 steps with R rail ascending to enter Home Environment High Toilet,Walk in Shower Home Equipment Hand Held Shower Additional Social History Comment walking sticks has a 3WW stated that her sister will stay and assist her ; sister stated that she will stay with pt as long as needed M2 OT-IP Current Condition Start: 11/24/19 18:39 Freq: Status: Active Protocol: Document 11/24/19 18:25 [facility] (Rec: 11/24/19 18:57 [facility] [id number]) Occupational Therapy Current Condition Current Condition Evaluation Date 11/24/19 Treatment Diagnosis S/p L1-2, L2-3TLIF with posterior instrumentation Diagnosis Onset Date 11/23/19 Post Operative Precautions Lumbar Precautions Log Roll,No Twisting,Limit Bending,Lifting Restriction of 10 lbs,Gait Belt above Incisional Area Weight Bearing Status Weight Bearing Status Weight Bear as Tolerated M3 OT- IP Subjective and Pain Start: 11/24/19 18:39 Freq: Status: Active Protocol: Document 11/24/19 18:25 [facility] (Rec: 11/24/19 18:57 [facility] [id number]) OT- Subjective Occupational Therapy Visit Type Type Initial Evaluation Visit Start Time 16:45 Visit Stop Time 18:25 Total Visit Minutes 30 Notes Split treatment prior to dinner and then afterwards [id number], and [id number]. Occupational Therapy Visit Comments Patient Comments Pt's sister present for the beginning of OT eval. Pt also seen with PT due to needing extensive assist for mobility needs. Patient/Caregiver Goals To go home. OT Pain Assessment Pain When Pain Assessed During Mobility Pain Present Pain Present Pain Reported Location Back Intensity 8 Scale Used Numeric (1 - 10) M4 OT- IP ADL's Start: 11/24/19 18:39 Freq: Status: Active Protocol: Document 11/24/19 18:25 [facility] (Rec: 11/24/19 18:57 [facility] [id number]) OT OZH-Xfpy-Urbysqd General Evaluation Self-Feeding Ability Independent OT ADL-Grooming Comments OT Grooming Comments Not performed. Educated pt to spit into a cup to ensure follow through of back precautions. OT ADL-Dressing General Eval Lower Body Dressing Ability Maximum Assistance Areas Needing Assistance Socks Comments OT Dressing Comments Initiated education of LB dressing, to dress left side first as left leg weaker and harder to move and then right side. Pt states does not wear socks. Pt states has a turning and beading machine operator at home. OT ADL-Toileting Comments OT Toileting Comments Not having to go. Educated may be best to stand to wipe to be able to follow back precautions, otherwise may need assist or use of toilet aid. In addition suggested use of pads at night to prevent from rushing to the bathroom , in addition sister to be present to assist as needed. Pt has a high toilet but may benefit form BSC next to the bed. OT ADL-Bathing Comments OT Bathing Comments Not performed. Pt states her shower stall in too small to place a shower chair in or walker if needed. M5 OT- IP IADL's Start: 11/24/19 18:39 Freq: Status: Active Protocol: Document 11/24/19 18:25 [facility] (Rec: 11/24/19 18:57 [facility] [id number]) OT-Instrumental Activities of Daily Living Home Safety Awareness Home Safety Comments Pt's sister to stay with her and assist for all Adl and IADl needs. M6 OT- IP Functional Cognition Start: 11/24/19 18:39 Freq: Status: Active Protocol: Document 11/24/19 18:25 [facility] (Rec: 11/24/19 18:57 [facility] [id number]) Cognitive Factors Limiting Selfcare Function Cognitive Ability Level of Alertness Alert Patient Orientation Name,Month,Date,Year,Place, Situation Attention Span Ability Capable of Focused Attention, Capable of Sustained Attention Ability to Follow Commands Able to Follow One Step Commands Memory Description Short Term Impaired Safety Awareness Underestimates Need for Assistance Cognitive Comments Cognitive Assessment Comments Initially pt not able to recall all back precaution and after education able to recall all back precautions. Pt has difficulty to incorporate back precautions and tends to twist and needing cues to be careful and to have items in front of her. VC for safety awareness and FWW safety. OT- Vision and Hearing OT- Hearing Assessment OT- Hearing Assessment WFL OT- Vision Assessment Visual Acuity Glasses For Reading M7 OT- IP Mobility and Balance Start: 11/24/19 18:39 Freq: Status: Active Protocol: Document 11/24/19 18:25 [facility] (Rec: 11/24/19 18:57 [facility] [id number]) OT- Bed Mobility Assessment Rolling Type of Rolling Roll to Right Level of Assistance Maximum Assistance Supine to Sit Supine to Sit Assist Maximum Assistance,1 Person Assistance,Bedrails Sit to Supine Sit to Supine Assist Minimal Assistance Scooting Scooting to Edge of Bed Maximum Assistance,1 Person Assistance OT-Transfer Assessment Sit to and From Stand Sit to and from Stand Moderate Assistance Transfers Transfer Ability Minimal Assistance Technique Transfer Destination Bed,Chair Transfer Technique Stand Pivot Devices Transfer Assistive Devices Gait Belt,Front Wheeled Walker Comments Mobility Comments MAX Trang to roll all the way to her side and then assist upright. MODA to stand and EDY with FWW to take steps in the room. Pt having heavy use of arms on FWW.Pt may benefit for bed rail. OT- Balance Assessment Sitting Balance and Reactions Static Sitting Balance Ability Good Dynamic Sitting Balance Ability Fair Standing Balance and Reactions Static Standing Balance Ability Fair M8 OT- IP Objective Assessments Start: 11/24/19 18:39 Freq: Status: Active Protocol: Document 11/24/19 18:25 [facility] (Rec: 11/24/19 18:57 [facility] [id number]) OT Gross Range of Motion Upper Extremity Range of Motion Assessment Within Functional Limits OT Strength Upper Extremity Strength Assessment Within Functional Limits M9 OT- IP Assessment and Plan Start: 11/24/19 18:39 Freq: Status: Active Protocol: Document 11/24/19 18:25 [facility] (Rec: 11/24/19 18:57 [facility] [id number]) OT Summary Assessment and Plan Potential Rehabilitation Potential Good Analytic Complexity at Evaluation Low Summary OT Impairments Range of Motion,Balance, Functional Cognition, Functional Mobility,Grooming, Dressing,Toileting,Bathing, Toilet Transfers,Shower Transfers,Activity Tolerance Progress Towards Goals Progressing Toward Goals,Slow Progress due to Pain Assessment Summary Pt low complexity and now needing extensive assist for bed mobility and ADL needs. In addition pt needing more training and education to incorporate back precautions for Adl needs. Pt's sister to stay with pt and assist with care. Therefore pending caregiver training suggest either skilled rehab versus home with sister and home health. Goals Grooming Goal Independent Dressing Goal Standby Assistance Toileting Goal Standby Assistance Bathing Goal Minimal Assistance Toilet Transfer Goal Standard Toilet Shower Transfer Goal Contact Guard Assistance Patient/Caregiver Education Goal Demonstrate Post-Op Precautions,Caregiver Independent Assisting Patient Days to Meet Goals 7 Frequency of Treatment Frequency Of Treatment Once a Day Treatment Plan OT Treatment Plan ADL Training,Functional Cognition Training,Functional Mobility,Patient/Family Education,Discharge Planning Other Treatment Recommendations and Next Caregiver training Treatment Focus Discharge Recommendations OT Discharge Recommendations Home with 13/05 Assist,Home Health,SNF Rehab Home Equipment Needs BSC, FWW , bed rail
[2019-11-24] MEDS: SENNOSIDES 8.6 MG TABLET 17.2 MG PO (20:46)
[2019-11-24] MEDS: hydroCHLOROthiazide 12.5 MG CAPSULE PO (20:48)
[2019-11-24] MEDS: BENAZEPRIL 20 MG TABLET PO (20:48)
[2019-11-25] MEDS: hydrOXYzine pamoate 25 MG CAPSULE PO ×4 (00:01→23:50)
[2019-11-25] MEDS: HYDROCODONE/ACET 5/325 TABLET 2 TAB PO (00:44)
[2019-11-25] MEDS: HYDROMORPHONE 2 MG TABLET PO ×2 (05:16→08:13)
[2019-11-25 05:40] VITALS: BP 125/60; PULSE 75; RESP 16; TEMP 36.7; O2SAT 92
[2019-11-25] MEDS: HYDROMORPHONE 0.5 MG INJ IV ×2 (07:26→12:15)
[2019-11-25 08:00] VITALS: BP 137/73; PULSE 80; RESP 17; TEMP 36.6; O2SAT 98
--- NOTE | 2019-11-25 08:10 | P.PN_ITS ---
Subjective Subjective Date Patient Seen: 11/25/19 Time Patient Seen: 08:10 Interval history: POD #2 L1-2, L2- TLIF with Dr. Kumari. Continues to have intermittent nausea though notes improvement as the day went on yesterday. Scopalamine patch on. Notes some decreased sensation along left lateral thigh. Pain continues to be moderate to severe. Inadequate relief with [place] with use of Dilaudid IV, tried one dose of PO Dilaudid with some improvement overnight. Denies any chest pain or shortness of breath. Exam Vital Signs (past 8 hours): - 11/25/19 05:40 Temperature 98.0 F Pulse Rate 75 Respiratory Rate 16 Blood Pressure 125/60 Pulse Oximetry 92 Oxygen Delivery Method Room Air Oxygen Flow Rate 0 Narrative Exam Narrative: 78 year old female resting in bed. Alert and oriented in no acute distress. Dressing in place over lumbar spine is CDI. 5/5 BLE. Palpable pedal pulses. Calves soft, compressible. Objective Labs Result Diagrams: 11/24/19 05:50 Assessment & Plan Assessment & Plan narrative: Continue to work with PT today. Dilaudid PO 4mg added today for severe pain. Continue to utilize Dilaudid 2mg for moderate pain as well as Vistaril for spasm/nausea. Continue present management for nausea as it seems to be improving, she is tolerating medication and a diet. Possible discharge to home tomorrow if cleared with PT and pain controlled. Quality VTE Deep Vein Thrombosis/Pulmonary Embolism Present on Admission: No
[2019-11-25] MEDS: CALCIUM CARBONATE 600 MG TABLET PO ×3 (08:12→20:13)
[2019-11-25] MEDS: DOCUSATE 100 MG CAPSULE PO ×2 (08:12→20:13)
[2019-11-25] MEDS: HYDROMORPHONE 4 MG TABLET PO ×3 (11:21→22:23)
[2019-11-25 13:00] VITALS: BP 143/67; PULSE 81; RESP 17; TEMP 37.1; O2SAT 91
[2019-11-25] MEDS: DEXAMETHASONE 10 MG/ML VIAL IV (14:21)
--- NOTE | 2019-11-25 14:36 | PC.NURSE ---
Pt reported severe pain throughout shift, -06/30 with ice, PO and IV dilaudid; Dexamethasone ordered and administered c/m/s to BLLEs present; [place] analisa c/d/i; Ellie d/c at 1300; this RN encouraged pt to hydrate and cough/deep breathe; SCDs active; sister in room
--- NOTE | 2019-11-25 15:05 | OT.IP.TRT ---
Current Diagnoses Other idiopathic scoliosis, lumbar region (11/23/19) Spondylolisthesis, lumbar region (11/23/19) Spinal stenosis, lumbar region with neurogenic claudication (11/23/19) Surgery Performed Operation Date: 11/23/19 12:15 Actual Procedures p L1-2, L2-3 TLIF with posterior instrumentation - Varinder Kumari MD Occupational Therapy Treatment Note M2 OT-IP Current Condition Start: 11/24/19 18:39 Freq: Status: Active Protocol: Document 11/24/19 18:25 [facility] (Rec: 11/24/19 18:57 [facility] [id number]) Occupational Therapy Current Condition Current Condition Evaluation Date 11/24/19 Treatment Diagnosis S/p L1-2, L2-3TLIF with posterior instrumentation Diagnosis Onset Date 11/23/19 Post Operative Precautions Lumbar Precautions Log Roll,No Twisting,Limit Bending,Lifting Restriction of 10 lbs,Gait Belt above Incisional Area Weight Bearing Status Weight Bearing Status Weight Bear as Tolerated M3 OT- IP Subjective and Pain Start: 11/24/19 18:39 Freq: Status: Active Protocol: Document 11/25/19 15:05 [facility] (Rec: 11/25/19 16:04 [facility] [id number]) OT- Subjective Occupational Therapy Visit Type Type Patient Refusal Visit Start Time 15:05 Notes Pt declined OT tx due to fatigue and pain level of 8-9/ 10. Pt agreed to try again in AM. No charge.
[2019-11-25 15:15] VITALS: BP 151/72; PULSE 82; RESP 17; TEMP 36.8; O2SAT 95
--- NOTE | 2019-11-25 15:40 | PT.IPTN ---
Current Diagnoses Other idiopathic scoliosis, lumbar region (11/23/19) Spondylolisthesis, lumbar region (11/23/19) Spinal stenosis, lumbar region with neurogenic claudication (11/23/19) Surgery Performed Operation Date: 11/23/19 12:15 Actual Procedures p L1-2, L2-3 TLIF with posterior instrumentation - Varinder Kumari MD Physical Therapy Treatment Note M2 PT-IP Current Condition Start: 11/24/19 13:30 Freq: NEEDED Status: Active Protocol: Document 11/24/19 10:24 AB (Rec: 11/24/19 13:51 AB [id number]) Physical Therapy Current Condition Current Condition Evaluation Date 11/24/19 Treatment Diagnosis s/p L1-2 TLIF; difficulty in walking Onset Date 11/23/2019 Precautions Lumbar Precautions Log Roll,No Twisting,Limit Bending,Lifting Restriction of 10 lbs,Gait Belt above Incisional Area M3 PT-IP Subjective Start: 11/24/19 13:30 Freq: NEEDED Status: Active Protocol: Document 11/25/19 08:57 LJ (Rec: 11/25/19 15:40 LJ [email or web address]) Subjective Physical Therapy Visit Type Type Treatment Note Visit Start Time 08:57 Visit Stop Time 09:23 Total Visit Minutes 26 Physical Therapy Visit Comments Patient Comments Pt in bed. States she is willing to try PT but is in quite a bit of pain Therapy Pain Assessment Pain When Pain Assessed At Rest Pain Present Pain Present Pain Reported M4 PT-IP Mobility and Gait Start: 11/24/19 13:30 Freq: NEEDED Status: Active Protocol: Document 11/25/19 08:57 LJ (Rec: 11/25/19 15:40 LJ [email or web address]) PT-Bed Mobility Assessment Rolling Type of Rolling Log Rolling Level of Assist Maximal Assistance,1 Person Assistance Supine to Sit Supine to Sit Maximum Assistance,1 Person Assistance Sit to Supine Sit to Supine Maximum Assistance,1 Person Assistance Scooting Scooting to Edge of Bed Maximum Assistance PT-Transfer Assessment Sit to and From Stand Sit to and from Stand Moderate Assistance,1 Person Assistance,Use of Upper Extremities Equipment Transfer Assistive Device Gait Belt,Front Wheeled Walker Orthotic/Prosthetic Devices or Brace: No Transfers Transfer Destination Bed Transfer Technique Lateral Scoot Transfer Ability Level of Assist Moderate Assistance,1 Person Assistance,Use of Upper Extremities Comments Mobility Comments Pt required MaxA with bed mobility and required several rest breaks going from supine to sitting on edge of bed. Accomplished sit<>stand x3 with ModA and rest breaks between each attempt. Gait Assessment Gait Gait Assistance Required: Contact Guard Assist,Minimum Assistance Distance (Feet) 2 Able to Maintain Weight Bearing Status Yes During Gait Assistive Devices Assistive Device Gait Belt,Front Wheeled Walker Orthotic/Prosthetic Devices or Brace: No Factors Limiting Gait Function Factors Limiting Gait Function Decreased Activity Tolerance, Decreased Strength,Limited Range of Motion,Pain,Poor Balance,Poor Safety Awareness Comments Gait Comments Pt able to take 2 small steps laterally toward head of bed unable to complete the third step for proper positioning in bed. She had lack of control when she sat on the bed after the lateral scoot. Unable to step forward due to increased pain in bilateral LEs. Stair Climbing Assessment Comments Stair Climbing Comments unable at this time M5 PT-IP Objective Assessments Start: 11/24/19 13:30 Freq: NEEDED Status: Active Protocol: Document 11/24/19 10:24 AB (Rec: 11/24/19 13:51 AB [id number]) Orientation Orientation/Cognition Level of Alertness Alert Orientation Name,Age,Birthday,Month,Date, Year,Day of Week,Place, Situation Safety Awareness Decreased Safety Awareness Gross Range of Motion Lower Extremity ROM Assessment Within Functional Limits Strength Lower Extremity Strength Assessment Bilaterally Impaired Hip 3+/5 Knee 3+/5 Coordination Assessment Gross Coordination Gross Coordination WNL Sensation Assessment Sensation Gross Sensation WNL Muscle Tone Muscle Tone WNL Yes M6 PT-IP Treatment Start: 11/24/19 13:30 Freq: NEEDED Status: Active Protocol: Document 11/25/19 08:57 TOMMY (Rec: 11/25/19 15:40 LJ [email or web address]) Physical Therapy Treatment Education Education Provided Precautions,Safety M7 PT-IP Assessment and Plan Start: 11/24/19 13:30 Freq: NEEDED Status: Active Protocol: Document 11/25/19 08:57 LJ (Rec: 11/25/19 15:40 LJ [email or web address]) PT Summary Assessment and Plan Potential Rehabilitation Potential Good Summary Impairments Pain,ROM,Strength,Balance, Coordination,Sensation,Tone, Cognition,Bed Mobility, Transfers,Gait,Activity Tolerance Progress Towards Goals Slow Progress due to Pain,Slow Progress due to Activity Tolerance Assessment Summary Pt endorsed pain of 9 in her back by the end of therapy./ She required a great deal of assist (ModA-MaxA) for all mobility and was unable to ambulate any farther than lateral scoots to head of bed, which she was unable to accomplish entirely. She was positioned in bed (MaxA) and left with call light. Goals Bed Mobility Goal Standby Assistance Transfer Goal Standby Assistance,Front Wheeled Walker Gait Goal Standby Assistance,Front Wheel Walker Gait Distance 150 Other Goals up/down 5 steps R rail ascending SBA Days to Meet Goals 10 Frequency of Treatment Frequency Of Treatment Twice a Day Treatment Plan Physical Therapy Treatment Plan Bed Mobility Training,Transfer Training,Gait Training, Therapeutic Exercise,Balance Retraining,Post Op Education, Discharge Planning,Hot or Cold Pack,Neuromuscular Re-ed, Coordination Retraining,Manual Therapy Other Recommendations and Next Treatment ambulation, caregiver training Focus and stair training when appropriate Recommendations To Nursing Amount of Assist Needed 1 Person Assist Discharge Recommendations PT Discharge Recommendations Home with 24/7 Assist,Home Health,SNF Rehab Other Discharge Recommendations depending on progress: SNF vs home with 24/7 and HHPT Transportation Needs at Discharge Private Vehicle,Wheelchair/ Cabulance
--- NOTE | 2019-11-25 15:41 | PT.IPTN ---
Current Diagnoses Other idiopathic scoliosis, lumbar region (11/23/19) Spondylolisthesis, lumbar region (11/23/19) Spinal stenosis, lumbar region with neurogenic claudication (11/23/19) Surgery Performed Operation Date: 11/23/19 12:15 Actual Procedures p L1-2, L2-3 TLIF with posterior instrumentation - Varinder Kumari MD Physical Therapy Treatment Note M2 PT-IP Current Condition Start: 11/24/19 13:30 Freq: NEEDED Status: Active Protocol: Document 11/24/19 10:24 AB (Rec: 11/24/19 13:51 AB [id number]) Physical Therapy Current Condition Current Condition Evaluation Date 11/24/19 Treatment Diagnosis s/p L1-2 TLIF; difficulty in walking Onset Date 11/23/2019 Precautions Lumbar Precautions Log Roll,No Twisting,Limit Bending,Lifting Restriction of 10 lbs,Gait Belt above Incisional Area M3 PT-IP Subjective Start: 11/24/19 13:30 Freq: NEEDED Status: Active Protocol: Document 11/25/19 15:41 LJ (Rec: 11/25/19 15:41 LJ [email or web address]) Subjective Physical Therapy Visit Type Type Patient Refusal Physical Therapy Visit Comments Patient Comments I can't even move myself around in bed. The pain is too great M4 PT-IP Mobility and Gait Start: 11/24/19 13:30 Freq: NEEDED Status: Active Protocol: Document 11/25/19 08:57 LJ (Rec: 11/25/19 15:40 LJ [email or web address]) PT-Bed Mobility Assessment Rolling Type of Rolling Log Rolling Level of Assist Maximal Assistance,1 Person Assistance Supine to Sit Supine to Sit Maximum Assistance,1 Person Assistance Sit to Supine Sit to Supine Maximum Assistance,1 Person Assistance Scooting Scooting to Edge of Bed Maximum Assistance PT-Transfer Assessment Sit to and From Stand Sit to and from Stand Moderate Assistance,1 Person Assistance,Use of Upper Extremities Equipment Transfer Assistive Device Gait Belt,Front Wheeled Walker Orthotic/Prosthetic Devices or Brace: No Transfers Transfer Destination Bed Transfer Technique Lateral Scoot Transfer Ability Level of Assist Moderate Assistance,1 Person Assistance,Use of Upper Extremities Comments Mobility Comments Pt required MaxA with bed mobility and required several rest breaks going from supine to sitting on edge of bed. Accomplished sit<>stand x3 with ModA and rest breaks between each attempt. Gait Assessment Gait Gait Assistance Required: Contact Guard Assist,Minimum Assistance Distance (Feet) 2 Able to Maintain Weight Bearing Status Yes During Gait Assistive Devices Assistive Device Gait Belt,Front Wheeled Walker Orthotic/Prosthetic Devices or Brace: No Factors Limiting Gait Function Factors Limiting Gait Function Decreased Activity Tolerance, Decreased Strength,Limited Range of Motion,Pain,Poor Balance,Poor Safety Awareness Comments Gait Comments Pt able to take 2 small steps laterally toward head of bed unable to complete the third step for proper positioning in bed. She had lack of control when she sat on the bed after the lateral scoot. Unable to step forward due to increased pain in bilateral LEs. Stair Climbing Assessment Comments Stair Climbing Comments unable at this time M5 PT-IP Objective Assessments Start: 11/24/19 13:30 Freq: NEEDED Status: Active Protocol: Document 11/24/19 10:24 AB (Rec: 11/24/19 13:51 AB [id number]) Orientation Orientation/Cognition Level of Alertness Alert Orientation Name,Age,Birthday,Month,Date, Year,Day of Week,Place, Situation Safety Awareness Decreased Safety Awareness Gross Range of Motion Lower Extremity ROM Assessment Within Functional Limits Strength Lower Extremity Strength Assessment Bilaterally Impaired Hip 3+/5 Knee 3+/5 Coordination Assessment Gross Coordination Gross Coordination WNL Sensation Assessment Sensation Gross Sensation WNL Muscle Tone Muscle Tone WNL Yes M6 PT-IP Treatment Start: 11/24/19 13:30 Freq: NEEDED Status: Active Protocol: Document 11/25/19 08:57 LJ (Rec: 11/25/19 15:40 LJ [email or web address]) Physical Therapy Treatment Education Education Provided Precautions,Safety M7 PT-IP Assessment and Plan Start: 11/24/19 13:30 Freq: NEEDED Status: Active Protocol: Document 11/25/19 08:57 LJ (Rec: 11/25/19 15:40 LJ [email or web address]) PT Summary Assessment and Plan Potential Rehabilitation Potential Good Summary Impairments Pain,ROM,Strength,Balance, Coordination,Sensation,Tone, Cognition,Bed Mobility, Transfers,Gait,Activity Tolerance Progress Towards Goals Slow Progress due to Pain,Slow Progress due to Activity Tolerance Assessment Summary Pt endorsed pain of 9 in her back by the end of therapy./ She required a great deal of assist (ModA-MaxA) for all mobility and was unable to ambulate any farther than lateral scoots to head of bed, which she was unable to accomplish entirely. She was positioned in bed (MaxA) and left with call light. Goals Bed Mobility Goal Standby Assistance Transfer Goal Standby Assistance,Front Wheeled Walker Gait Goal Standby Assistance,Front Wheel Walker Gait Distance 150 Other Goals up/down 5 steps R rail ascending SBA Days to Meet Goals 10 Frequency of Treatment Frequency Of Treatment Twice a Day Treatment Plan Physical Therapy Treatment Plan Bed Mobility Training,Transfer Training,Gait Training, Therapeutic Exercise,Balance Retraining,Post Op Education, Discharge Planning,Hot or Cold Pack,Neuromuscular Re-ed, Coordination Retraining,Manual Therapy Other Recommendations and Next Treatment ambulation, caregiver training Focus and stair training when appropriate Recommendations To Nursing Amount of Assist Needed 1 Person Assist Discharge Recommendations PT Discharge Recommendations Home with 24/7 Assist,Home Health,SNF Rehab Other Discharge Recommendations depending on progress: SNF vs home with 24/7 and HHPT Transportation Needs at Discharge Private Vehicle,Wheelchair/ Cabulance
--- NOTE | 2019-11-25 18:50 | PM.OP.1 ---
Operative Date/Time/Diagnoses Date of procedure: 11/23/19 Time of procedure: 14:22 Pre-op diagnosis: 1. L1-2, L2-3 spinal stenosis 2. L1-2, L2-3 spondylolisthesis 3. 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 L1-2, L2-3 Postero-lateral and posterior interbody fusion 2. L1-2, L2-3 interbody cage placement. 3. L1-2, L2-3 decompressive laminectomy with bilateral facetecomies 4. L1-2, L2-3 Posterior segmental instrumentation 5. [place] of bone marrow from iliac crest 6. Utilization of microsurgical technique and operating microscope Same procedure as scheduled: Yes Indications: Patient has been having chronic back pain and worsening lumbar radiculopathy. Patient failed multiple conservative management with worsening pain weakness and numbness in her lower extremity. Patient has been having difficulty performing activity of daily living. After discussing risks benefits of treatment options, patient elected proceed with surgery. Surgeon: Varinder Kumari Relationship Specialist: Gregg Retana Click Yes if Unassisted: No Anesthesia Type: General Operative Notes Closure Type: primary Specimen(s): none sent Prosthetic devices, grafts, tissues, transplants, or devices: Globus revolve screws, Rise cages Applied: catheter Estimated Blood Loss (mL): 150 Blood products transfused: none Procedure in detail: Patient was seen in the preoperative area. Risks and benefits of the surgery was discussed with the patient. Informed consent was obtained from the patient and placed in the chart. Surgical site was marked. Patient was taken to the operative room. General anesthesia was administered. Prophylactic antibiotic was given to the patient less than 30 min before the incision was made. Patient was placed into a prone position on the Tirso table. Patient's back was then prepped and draped in the sterile fashion. Time-out was performed at this time. Using AP and lateral C-arm imaging the interval between L1-2, L2-3 was identified and marked on patient's back. A 2 inch incision 2 in from midline was made on the left side first. The fascia was incised in line with skin incision. Globus MARS retractors was placed inside the incision and docked onto the L1 and L2 lamina. Using microsurgical technique and operating microscope, a L1 and L2 laminectomy and L1-2, L2-3 facetectomy was performed using a Kerrison rongeur. During the process of decompression more than 75% of bilateral L1-2, L2-3 facets were removed in order to decompress the spinal canal and the lateral recess. The L1-2, L2-3 level was grossly unstable after the decompression was completed and requiring the fusion procedure. The disc space at L1-2, L2-3 was identified. And a total diskectomy was performed at L1-2, L2-3 level. The endplates were decorticated using a rasp and shaver. The total diskectomy and decortication was performed at L1-2, L2-3 level in order to to accomplish a L1-2, L2-3 fusion. The local bone from the laminectomy and facetectomy was saved for local bone grafting. After the total diskectomy and decortication was completed, Bio4 bone graft material was combined with local bone that was harvested earlier. At this time, a separate skin is incision was made over the iliac crest. A Jamshidi needle was inserted into the iliac crest through a separate skin incision. 5 cc of bone marrow aspiration was obtained through the separate skin incision using a Jamshidi needle from the iliac crest. The bone marrow aspiration was combined with local bone and the Bio4 bone grafting material. The bone grafting material was placed into the L1-2, L2-3 interbody space along with two cages, one expandable cage at each level. The cages were expanded to their maximum height using the torque limiting screwdriver. After cage was inserted it was identified on the dorsum aspect of the dura and there was a pinhole size dural defect with minimal amount of CSF leakage. For prophylactic reason a 6-0 silk suture was used to repair the dural defect and a tight repair was performed. There was no CSF leakage visible at the end of the repair. At this time a mirror image incision was made on the right side. The fascia was incised in line with the skin incision. Globus MARS retractor was inserted and docked onto the L1-2, L2-3 posterolateral gutter. Using the power drill, posterior-lateral decortication was performed at L1-2, L2-3 level until bleeding cortical bone was identified. The remaining bone grafting material was placed into the L4-5 L5-S1 posterior lateral gutter he order to accomplish posterolateral fusion at the L1-2, L2-3 levels. Using the double C-arm technique, pedicle screws were placed into the L1, L2, L3 pedicles bilaterally. This was done by placing the Jamshidi needle into the pedicles, then placing the guidewires over the Jamshidi needle, and finally placing the cannulated screws over the guidewires bilaterally. After the pedicle screws were placed, 2 titanium rods was locked into the heads of the pedicle screws using locking caps and torque limiting screwdriver. Total 6 pedicles screws were placed. After all the hardware was placed, and confirmed with AP and lateral C-arm imaging, the wound was then irrigated with sterile normal saline and packed with Ray-Jennifer gauze for 3 min to accomplish hemostasis. After the gauze was removed the deep fascia was closed with #1 Vicryl suture. The subcutaneous layer was closed with 2-0 Vicryl. The skin was closed with skin mook. Patient tolerated the procedure well. There were no complications. Complications: none Post-operative Condition: stable Disposition: PACU Plan for aftercare: Admit to inpatient hospital
[2019-11-25 19:40] VITALS: BP 142/84; PULSE 92; RESP 17; TEMP 37.2; O2SAT 96
[2019-11-25] MEDS: POTASSIUM CHLORIDE 10 MEQ TAB PO (20:12)
[2019-11-25] MEDS: LORATADINE 10 MG TABLET PO (20:12)
[2019-11-25] MEDS: MULTIVITAMIN 1 TABLET 1 TAB PO (20:12)
[2019-11-25] MEDS: BENAZEPRIL 20 MG TABLET PO (20:13)
[2019-11-25] MEDS: hydroCHLOROthiazide 12.5 MG CAPSULE PO (20:13)
[2019-11-25] MEDS: SENNOSIDES 8.6 MG TABLET 17.2 MG PO (20:13)
[2019-11-25] MEDS: dexAMETHasone 4 MG TABLET PO (22:22)
[2019-11-25 23:33] VITALS: BP 144/71; PULSE 78; RESP 16; TEMP 36.5; O2SAT 97
[2019-11-26] MEDS: HYDROMORPHONE 4 MG TABLET PO ×5 (01:51→15:12)
--- NOTE | 2019-11-26 02:08 | PC.NURSE ---
Addendum entered by Paula Buitrago R.N. 11/26/19 07:00: States pain is still 5/10 but thinks it still feels better than prior to being medicated. Addendum entered by Paula Buitrago R.N. 11/26/19 05:38: Has slept most of night between pain meds. States pain this morning on first waking is 5/10; medicated with po Dilaudid. Original Note: 2350 Patient is alert and oriented. Breath sounds diminished in right lower lobe but otherwise CTA with RA sat of 97%. HRR with occasional missed beat. BP 144/71. Denies nausea. BT present and is passing flatus. Catheter removed yesterday and reportedly has been voiding on BSC; denies dysuria, frequency or urgency. Is able to turn with minimal assistance. Dressing to back is CDI. Complains of back pain (had Dilaudid at 2223 and states it is better but still high so repositioned, medicated with Vistaril and ice applied to back. Wearing bilateral foot SCD's and has good CMS. Fall risk score is high and bed alarm is activated. 0200 Patient awakened per her earlier request and medicated with po Dilaudid. States pain is 5/10 at rest and 8/10 with movement. Assisted to reposition onto back.
[2019-11-26] MEDS: dexAMETHasone 4 MG TABLET PO ×2 (05:34→14:02)
[2019-11-26 05:46] VITALS: BP 136/66; PULSE 57; RESP 16; TEMP 36.2; O2SAT 97
[2019-11-26 08:40] VITALS: BP 131/65; PULSE 67; RESP 16; TEMP 37.1; O2SAT 95
[2019-11-26] MEDS: CALCIUM CARBONATE 600 MG TABLET PO ×2 (08:42→14:01)
[2019-11-26] MEDS: DOCUSATE 100 MG CAPSULE PO (08:43)
[2019-11-26] MEDS: SODIUM CHLORIDE 0.9% FLUSH 10 ML IV (08:47)
--- NOTE | 2019-11-26 10:13 | PT.IPTN ---
Current Diagnoses Other idiopathic scoliosis, lumbar region (11/23/19) Spondylolisthesis, lumbar region (11/23/19) Spinal stenosis, lumbar region with neurogenic claudication (11/23/19) Surgery Performed Operation Date: 11/23/19 12:15 Actual Procedures p L1-2, L2-3 TLIF with posterior instrumentation - Varinder Kumari MD Physical Therapy Treatment Note M2 PT-IP Current Condition Start: 11/24/19 13:30 Freq: NEEDED Status: Active Protocol: Document 11/24/19 10:24 AB (Rec: 11/24/19 13:51 AB [id number]) Physical Therapy Current Condition Current Condition Evaluation Date 11/24/19 Treatment Diagnosis s/p L1-2 TLIF; difficulty in walking Onset Date 11/23/2019 Precautions Lumbar Precautions Log Roll,No Twisting,Limit Bending,Lifting Restriction of 10 lbs,Gait Belt above Incisional Area M3 PT-IP Subjective Start: 11/24/19 13:30 Freq: NEEDED Status: Active Protocol: Document 11/26/19 09:04 SP (Rec: 11/26/19 13:10 SP [id number]) Subjective Physical Therapy Visit Type Type Treatment Note Visit Start Time 09:32 Visit Stop Time 10:13 Total Visit Minutes 41 Number of CLINICAL QUALITY ASSURANCE SPECIALIST Visits 2 Physical Therapy Visit Comments Patient Comments Pt willing to work with PT. Patient Goals caregiver training with sister in the afternoon to go home. Therapy Pain Assessment Pain When Pain Assessed 7 Pain Present Pain Present Pain Reported Location Back Intensity 7 Scale Used 7-8/10 during mobility and at rest Pain Management Techniques Apply Cold,Re-positioning, Timing of Activity with Medications M4 PT-IP Mobility and Gait Start: 11/24/19 13:30 Freq: NEEDED Status: Active Protocol: Document 11/26/19 09:04 SP (Rec: 11/26/19 13:10 SP [id number]) PT-Bed Mobility Assessment Rolling Type of Rolling Log Rolling,Roll to Left Level of Assist Contact Guard Assistance Supine to Sit Supine to Sit Minimal Assistance,1 Person Assistance,Bedrails Scooting Scooting to Edge of Bed Contact Guard Assistance PT-Transfer Assessment Sit to and From Stand Sit to and from Stand Contact Guard Assistance,1 Person Assistance,Use of Upper Extremities Equipment Transfer Assistive Device Gait Belt,Front Wheeled Walker Orthotic/Prosthetic Devices or Brace: No Transfers Transfer Destination Chair Transfer Technique Pt ambulated usign FWW Transfer Ability Level of Assist Contact Guard Assistance, Minimal Assistance,1 Person Assistance,Use of Upper Extremities Comments Mobility Comments Pt was ableto log roll to L with use of bed rails and HOB elevated 35 deg, cued for knees with shld to maintain spinal precautions with good demonstration. Min A for trunk support transitioning to sitting. Pt was ableto complete scoot CGA to EOB and sit to stand CGA usign FWW and cuing for straight back to maintain no bending. Pt was ableto step pivot bed to chair CGA and cuing for upright posture during descent wtih good demo. Pt was upright in chair with call light and all needs in reach when left. Nurse and sister in room with left. CLINICAL QUALITY ASSURANCE SPECIALIST requested nursing asst with verbal confirmation to get a chair alarm for patient, fall risk. Pt understood and agreed. Gait Assessment Gait Gait Assistance Required: Standby Assistance,Contact Guard Assist Distance (Feet) 150 Able to Maintain Weight Bearing Status Yes During Gait Assistive Devices Assistive Device Gait Belt,Front Wheeled Walker Orthotic/Prosthetic Devices or Brace: No Gait Deviations General Gait Pattern Antalgic,Decreased Stride Length,Decreased Feet Clearance Factors Limiting Gait Function Factors Limiting Gait Function Decreased Activity Tolerance, Decreased Strength,Limited Range of Motion,Pain,Poor Balance,Poor Safety Awareness Comments Gait Comments Pt was ableto ambulate further distance from chair to stairs and back using FWW CGA-SBA. Pt requried 2 stopped rest breaks for recovery. Stair Climbing Assessment Evaluation Level of Assist On Stairs Contact Guard Assistance, Minimal Assistance,1 Person Assistance Devices Stair Climbing Assistive Devices Straight Cane,Right Railing Technique/Endurance Stair Climbing Direction Ascend and Descend Stair Climbing Technique Step to Step Number of Steps Climbed 3 Stair Climbing Set # Repetitions (reps) 1 Comments Stair Climbing Comments Pt was ableto complete ascend/ descend 3 stairs using R HR and SPC in LUE Min A initially then CGA.B LOB ro deviations. Sister will be here in pm for caregiver training including stairs, bed mob, transfer and gait to prep for possible DC soon. PT-Balance Assessment Sitting Balance and Reactions Static Sitting Balance Ability Good Dynamic Sitting Balance Ability Fair Standing Balance and Reactions Static Standing Balance Ability Good Dynamic Standing Balance Ability Fair Device Used FWW M5 PT-IP Objective Assessments Start: 11/24/19 13:30 Freq: NEEDED Status: Active Protocol: Document 11/24/19 10:24 AB (Rec: 11/24/19 13:51 AB [id number]) Orientation Orientation/Cognition Level of Alertness Alert Orientation Name,Age,Birthday,Month,Date, Year,Day of Week,Place, Situation Safety Awareness Decreased Safety Awareness Gross Range of Motion Lower Extremity ROM Assessment Within Functional Limits Strength Lower Extremity Strength Assessment Bilaterally Impaired Hip 3+/5 Knee 3+/5 Coordination Assessment Gross Coordination Gross Coordination WNL Sensation Assessment Sensation Gross Sensation WNL Muscle Tone Muscle Tone WNL Yes M6 PT-IP Treatment Start: 11/24/19 13:30 Freq: NEEDED Status: Active Protocol: Document 11/26/19 09:04 SP (Rec: 11/26/19 13:10 SP [id number]) Physical Therapy Treatment Exercises Exercises Ankle Pumps,Gluteal Sets,Quad Sets,Seated Knee Flexion/ Extension Education Education Provided Precautions,Safety M7 PT-IP Assessment and Plan Start: 11/24/19 13:30 Freq: NEEDED Status: Active Protocol: Document 11/26/19 09:04 SP (Rec: 11/26/19 13:10 SP [id number]) PT Summary Assessment and Plan Potential Rehabilitation Potential Good Status of Condition at Evaluation Evolving Summary Impairments Pain,ROM,Strength,Balance, Coordination,Sensation,Tone, Cognition,Bed Mobility, Transfers,Gait,Activity Tolerance Progress Towards Goals Progressing Toward Goals,Slow Progress due to Pain Assessment Summary See mobility comments. CGA- min A usign fWW. Caregiver training with sister this afternoon and if ableto complete 5 stairs possible DC soon. PT recommending 24 hr assist by sister and home health. Goals Bed Mobility Goal Standby Assistance Transfer Goal Standby Assistance,Front Wheeled Walker Gait Goal Standby Assistance,Front Wheel Walker Gait Distance 150 Other Goals up/down 5 steps R rail ascending SBA Days to Meet Goals 10 Frequency of Treatment Frequency Of Treatment Twice a Day Treatment Plan Physical Therapy Treatment Plan Bed Mobility Training,Transfer Training,Gait Training, Therapeutic Exercise,Balance Retraining,Post Op Education, Discharge Planning,Hot or Cold Pack,Neuromuscular Re-ed, Coordination Retraining,Manual Therapy Other Recommendations and Next Treatment skin care instructor training: bed mob, Focus transfer ambulation, stair training Recommendations To Nursing Amount of Assist Needed 1 Person Assist Discharge Recommendations PT Discharge Recommendations Home with 13/05 Assist,Home Health Transportation Needs at Discharge Private Vehicle,Wheelchair/ Cabulance
[2019-11-26] MEDS: hydrOXYzine pamoate 25 MG CAPSULE PO (11:42)
--- NOTE | 2019-11-26 12:28 | CM.DPC ---
DCP Cont: Spoke to Gregg orthopedic PA. Asked about home health, for this is rarely ordered for post laminectomy. He mentioned that it would not be advisable as of yet, for she will need to have her follow up in the clinic. Patient is to be working with P.T. today, and will update them as well. P: DCP to continue to follow. Home is the plan, she has supportive care at home. Will collaborate with P.T. as well. Yolanda Dubose RN/Toggle Press Operator
[2019-11-26 13:00] VITALS: BP 140/56; PULSE 75; RESP 16; TEMP 37; O2SAT 97
--- NOTE | 2019-11-26 13:34 | PT.IPTN ---
Current Diagnoses Other idiopathic scoliosis, lumbar region (11/23/19) Spondylolisthesis, lumbar region (11/23/19) Spinal stenosis, lumbar region with neurogenic claudication (11/23/19) Surgery Performed Operation Date: 11/23/19 12:15 Actual Procedures p L1-2, L2-3 TLIF with posterior instrumentation - Varinder Kumari MD Physical Therapy Treatment Note M2 PT-IP Current Condition Start: 11/24/19 13:30 Freq: NEEDED Status: Active Protocol: Document 11/24/19 10:24 AB (Rec: 11/24/19 13:51 AB [id number]) Physical Therapy Current Condition Current Condition Evaluation Date 11/24/19 Treatment Diagnosis s/p L1-2 TLIF; difficulty in walking Onset Date 11/23/2019 Precautions Lumbar Precautions Log Roll,No Twisting,Limit Bending,Lifting Restriction of 10 lbs,Gait Belt above Incisional Area M3 PT-IP Subjective Start: 11/24/19 13:30 Freq: NEEDED Status: Active Protocol: Document 11/26/19 13:10 SP (Rec: 11/26/19 15:11 SP [email or web address]) Subjective Physical Therapy Visit Type Type Treatment Note Visit Start Time 13:10 Visit Stop Time 13:34 Total Visit Minutes 24 Notes Sister present for caregiver training including log roll, bed mob, transfer, gait, stair mgt usign FWW with patient. Number of STAGING TECHNICIAN Visits 3 Physical Therapy Visit Comments Patient Comments Pt willing to work with PT. Patient Goals Complete caregiver training and go home with sister. Therapy Pain Assessment Pain When Pain Assessed During Mobility Pain Present Pain Present Pain Reported Location Back Intensity 6 Pain Management Techniques Apply Cold,Re-positioning, Timing of Activity with Medications M4 PT-IP Mobility and Gait Start: 11/24/19 13:30 Freq: NEEDED Status: Active Protocol: Document 11/26/19 13:10 SP (Rec: 11/26/19 15:11 SP [email or web address]) PT-Bed Mobility Assessment Rolling Type of Rolling Log Rolling,Roll to Left Level of Assist Standby Assistance Supine to Sit Supine to Sit Minimal Assistance,1 Person Assistance,Bedrails Scooting Scooting to Edge of Bed Standby Assistance PT-Transfer Assessment Sit to and From Stand Sit to and from Stand Standby Assistance,Use of Upper Extremities Equipment Transfer Assistive Device Gait Belt,Front Wheeled Walker Orthotic/Prosthetic Devices or Brace: No Transfers Transfer Destination Chair Transfer Technique Pt ambulated using FWW Transfer Ability Level of Assist Standby Assistance,Contact Guard Assistance,Use of Upper Extremities Comments Mobility Comments Pt and sister completed caregiver training. Sister provided SBA with use of fWW at side of bed to assimulate bed rail while sister supported opposite side of fWW for stability, therapist provided education and cuing for knees bent and log roll with shoulder onto L side for maintaining spinal precautions with good demonstration. Pt required CGA- 10% A for trunk transitioning to sitting while pressing from bed LUE to sit, able to scoot to EOB herself, sit to stand SBA usign FWW and cued for looking up and straight posture wtih good follow through when sat in chair returning from walk with proper hand placement. Pt was up in chair when left with all needs inreach and sisterin room. Gait Assessment Gait Gait Assistance Required: Standby Assistance Distance (Feet) 150 Able to Maintain Weight Bearing Status Yes During Gait Assistive Devices Assistive Device Gait Belt,Front Wheeled Walker Orthotic/Prosthetic Devices or Brace: No Gait Deviations General Gait Pattern Antalgic,Decreased Stride Length,Decreased Feet Clearance Factors Limiting Gait Function Factors Limiting Gait Function Decreased Activity Tolerance, Decreased Strength,Limited Range of Motion,Pain,Poor Balance Comments Gait Comments Pt is able to ambulate approx same distance with decreased assistance SBA provided by sister with occasional cuing for awareness of upright posture. Stair Climbing Assessment Evaluation Level of Assist On Stairs Contact Guard Assistance,1 Person Assistance Devices Stair Climbing Assistive Devices Straight Cane,Right Railing Technique/Endurance Stair Climbing Direction Ascend and Descend Stair Climbing Technique Step to Step Number of Steps Climbed 3 Stair Climbing Set # Repetitions (reps) 2 Comments Stair Climbing Comments Pt was ableto complete ascend/ descend 6 stairs using R HR and SPC in LUE CGA, reported feels more pain descending, suggested keepign SPC on same step to assist upright posture . PT-Balance Assessment Sitting Balance and Reactions Static Sitting Balance Ability Good Dynamic Sitting Balance Ability Fair Standing Balance and Reactions Static Standing Balance Ability Good Dynamic Standing Balance Ability Fair Device Used FWW M5 PT-IP Objective Assessments Start: 11/24/19 13:30 Freq: NEEDED Status: Active Protocol: Document 11/24/19 10:24 AB (Rec: 11/24/19 13:51 AB [id number]) Orientation Orientation/Cognition Level of Alertness Alert Orientation Name,Age,Birthday,Month,Date, Year,Day of Week,Place, Situation Safety Awareness Decreased Safety Awareness Gross Range of Motion Lower Extremity ROM Assessment Within Functional Limits Strength Lower Extremity Strength Assessment Bilaterally Impaired Hip 3+/5 Knee 3+/5 Coordination Assessment Gross Coordination Gross Coordination WNL Sensation Assessment Sensation Gross Sensation WNL Muscle Tone Muscle Tone WNL Yes M6 PT-IP Treatment Start: 11/24/19 13:30 Freq: NEEDED Status: Active Protocol: Document 11/26/19 13:10 SP (Rec: 11/26/19 15:11 SP [email or web address]) Physical Therapy Treatment Education Education Provided Precautions,Safety Other Treatments Other Treatment Performed Discussed keep up with LE exercises inpost op packet 2-3 /day and walking every hour. M7 PT-IP Assessment and Plan Start: 11/24/19 13:30 Freq: NEEDED Status: Active Protocol: Document 11/26/19 13:10 SP (Rec: 11/26/19 15:11 SP [email or web address]) PT Summary Assessment and Plan Potential Rehabilitation Potential Good Status of Condition at Evaluation Evolving Summary Impairments Pain,ROM,Strength,Balance, Coordination,Sensation,Tone, Cognition,Bed Mobility, Transfers,Gait,Activity Tolerance Progress Towards Goals Progressing Toward Goals Assessment Summary See mobility comments. CGA with most mobililty and stairs . SBA usign fWW. Caregiver training with sister completed . PT recommending 24 hr assist by sister and home health. Pt is cleared by PT when medically stable. Goals Bed Mobility Goal Standby Assistance Transfer Goal Standby Assistance,Front Wheeled Walker Gait Goal Standby Assistance,Front Wheel Walker Gait Distance 150 Other Goals up/down 5 steps R rail ascending SBA Days to Meet Goals 10 Frequency of Treatment Frequency Of Treatment Twice a Day Treatment Plan Physical Therapy Treatment Plan Bed Mobility Training,Transfer Training,Gait Training, Therapeutic Exercise,Balance Retraining,Post Op Education, Discharge Planning,Hot or Cold Pack,Neuromuscular Re-ed, Coordination Retraining,Manual Therapy Other Recommendations and Next Treatment plant health care technician training: bed mob, Focus transfer ambulation, stair training Recommendations To Nursing Amount of Assist Needed 1 Person Assist Discharge Recommendations PT Discharge Recommendations Home with 24/7 Assist,Home Health Transportation Needs at Discharge Private Vehicle,Wheelchair/ Cabulance
--- NOTE | 2019-11-26 14:09 | OT.IP.TRT ---
Current Diagnoses Other idiopathic scoliosis, lumbar region (11/23/19) Spondylolisthesis, lumbar region (11/23/19) Spinal stenosis, lumbar region with neurogenic claudication (11/23/19) Surgery Performed Operation Date: 11/23/19 12:15 Actual Procedures p L1-2, L2-3 TLIF with posterior instrumentation - Varinedr Kumari MD Occupational Therapy Treatment Note M3 OT- IP Subjective and Pain Start: 11/24/19 18:39 Freq: Status: Active Protocol: Document 11/26/19 14:09 PJM (Rec: 11/26/19 17:47 PJM [id number]) OT- Subjective Occupational Therapy Visit Type Type Treatment Note Visit Start Time 13:35 Visit Stop Time 14:09 Total Visit Minutes 34 Notes Pt's sister here for education this session. Occupational Therapy Visit Comments Patient Comments I am feeling so much better today. Patient/Caregiver Goals to go home this afternoon OT Pain Assessment Pain When Pain Assessed After Treatment Pain Present Pain Present Pain Reported Location Back Intensity 3 Scale Used Numeric (1 - 10) Description Aching,Acute M4 OT- IP ADL's Start: 11/24/19 18:39 Freq: Status: Active Protocol: Document 11/26/19 14:09 PJM (Rec: 11/26/19 17:47 PJM [id number]) OT IOR-Vnat-Wscduad General Evaluation Self-Feeding Ability Independent OT ADL-Grooming Comments OT Grooming Comments provided education re: body mechanics OT ADL-Oral Care Comments Oral Care Comments provided education re: body mechanics OT ADL-Dressing General Eval Upper Body Dressing Ability Independent Lower Body Dressing Ability Standby Assistance Areas Needing Assistance Retrieving/Set-up of Clothing, Pull-Over Shirt,Underpants/ Brief,Pants/Shorts,Socks,Shoes Assistive Devices Dressing Assistive Devices Long Handled Shoe Horn,Clammer ,Sock Aid Comments OT Dressing Comments Provided education and practice re: dressing with assembly machine feeder, sock aid, long shoe horn with pt dressing in street clothes for d/c home OT ADL-Toileting General Evaluation Toileting Ability Standby Assistance Areas Needing Assistance Manage Clothing,Perform Perineal Hygiene Devices Toileting Assistive Devices Toilet Paper Aid Comments OT Toileting Comments provided education re: body mechanics and toilet paper aids and resources to obtain one OT ADL-Bathing Devices Bathing Equipment Long Handled Sponge or [place], Hand Held Shower Sprayer Comments OT Bathing Comments pt declined to shower here, provided education re: lumbar spine precautions and body mechanics, pt has long bath sponge, pt states shower stall is too small for shower seat M5 OT- IP IADL's Start: 11/24/19 18:39 Freq: Status: Active Protocol: Document 11/26/19 14:09 PJM (Rec: 11/26/19 17:[address] [facility] [id number]) OT-Instrumental Activities of Daily Living Deficits IADL Deficits Identified Deficits Home Safety Awareness Awareness of Need for Assistance at Home Good Awareness Ability to Problem Solve Emergency Able to Problem Solve Situations Medication Management Medication Management No Deficits Identified Money Management Money Management No Deficits Identified Meal Preparation Meal Preparation Caregiver Provides Assist Meal Preparation Comments sister to assist until pt able Hand Woven Carpet And Rug Mender Hand Woven Carpet And Rug Mender Caregiver Provides Assist Hand Woven Carpet And Rug Mender Comments sister to assist until pt able Driving Driving Caregiver Provides Assist Driving Comments sister to assist until pt able M6 OT- IP Functional Cognition Start: 11/24/19 18:39 Freq: Status: Active Protocol: Document 11/26/19 14:09 PJM (Rec: 11/26/19 17:[address] [facility] [id number]) Cognitive Factors Limiting Selfcare Function Cognitive Ability Level of Alertness Alert Patient Orientation Name,Age,Birthday,Month,Date, Year,Day of Week,Place, Situation Attention Span Ability Capable of Focused Attention, Capable of Sustained Attention Ability to Follow Commands Able to Follow Multi-Step Commands Memory Description No Deficits Noted Safety Awareness No Deficits Noted Problem Solving Ability No deficits Noted Cognitive Comments Cognitive Assessment Comments Pt verbalizes and demonstrates understanding of lumbar spine precautions and all education . M7 OT- IP Mobility and Balance Start: 11/24/19 18:39 Freq: Status: Active Protocol: Document 11/26/19 14:09 PJM (Rec: 11/26/19 17:[address] [facility] [id number]) OT-Transfer Assessment Sit to and From Stand Sit to and from Stand Standby Assistance Technique Transfer Destination Car Comments Mobility Comments provided education re: car transfer techniques OT- Gait Assessment Comments Gait Ability Comments see P.T. notes OT- Balance Assessment Sitting Balance and Reactions Static Sitting Balance Ability Good Dynamic Sitting Balance Ability Good Standing Balance and Reactions Static Standing Balance Ability Good Dynamic Standing Balance Ability Good Comments Other Balance Tests/Deviations/Treatment duirng lower body dressing : M9 OT- IP Assessment and Plan Start: 11/24/19 18:39 Freq: Status: Active Protocol: Document 11/26/19 14:09 YANIV (Rec: 11/26/19 17:47 PJM [id number]) OT Summary Assessment and Plan Potential Rehabilitation Potential Good Summary Progress Towards Goals Goals Met Assessment Summary Pt feeling much better today with much improved pain control and activity tolerance . All OT education and goals achieved today as described above. Pt verbalizes and demonstrates understanding of lumbar spine precautions and all education. Pt plans to d/c home today with 24 hr assist from sister, who was here today for education, for as long as needed. Frequency of Treatment Frequency Of Treatment Discharge Discharge Recommendations OT Discharge Recommendations Home with 13/05 Assist Home Equipment Needs pt will order toilet paper aid Transportation Needs at Discharge Private Vehicle
--- NOTE | 2019-11-26 17:49 | PM.PNPO.1 ---
Subjective Subjective Date Patient Seen: 11/26/19 Time Patient Seen: 07:00 Interval history: POD #1 s/p L1-2, L2-[address] Kumari. Patient doing well, complains of pain at surgical site of lower back. Mobilizing with PT. Voiding without difficulty or assistance. Denies fever, chills, chest pain, shortness of breath, urinary/bowel incontinence. Exam Vital Signs (past 8 hours): - 11/26/19 13:00 Temperature 98.6 F Pulse Rate 75 Respiratory Rate 16 Blood Pressure 140/56 L Pulse Oximetry 97 Oxygen Delivery Method Room Air Oxygen Flow Rate 0 Narrative Exam Narrative: 78 year old female laying comfortably in bed, in no apparent distress. A&Ox3. Dressing CDI. Able to actively dorsiflex/plantar flex LE BL. Sensory function grossly intact to light touch in LE BL. Capillary refill <2sec LE BL. Calves warm, soft, compressible, non tender to palpation. Objective Labs Result Diagrams: 11/24/19 05:50 Assessment & Plan Post-op Postoperative Procedures: Procedures Operation Date: 11/23/19 12:15 Actual Procedures Side Surgeon p L1-2, L2-3 TLIF with posterior instrumentation Varinder Kumari MD Postoperative day: 1 Postoperative status: doing well Postoperative plan: discharge Postoperative plan narrative: Patient ready for discharge home - pain under control, mobilizing with PT, voiding without difficulty or assistance Prescribed dilaudid 2mg PO Time Spent With Patient Time with patient: less than 15 minutes Quality VTE Deep Vein Thrombosis/Pulmonary Embolism Present on Admission: No
--- NOTE | 2019-11-30 10:26 | P.DS_ITS ---
History of Present Illness History of Present Illness Date Patient Seen: 11/26/19 Time Patient Seen: 17:49 Chief complaint: Tranlaminar Interbody Fusion/Laminotomy Narrative: See progress note Discharge Providers Provider Date of admission: 11/23/19 10:12 Discharge Date: 11/26/19 Primary care physician: Amilcar Menjivar MD Consults: 11/23/19 20:29 Consult to Occupational Therapy Evaluate & Treat Comment: Physician Instructions: Evaluate and treat Consult to Physical Therapy Evaluate & Treat Comment: Physician Instructions: Evaluate and Treat Discharge provider: Rogelio Sevilla PA-C Summary Hospital Course Discharge Diagnosis: Pre-op diagnosis: 1. L1-2, L2-3 spinal stenosis 2. L1-2, L2-3 spondylolisthesis 3. 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 L1-2, L2-3 Postero-lateral and posterior interbody fusion 2. L1-2, L2-3 interbody cage placement. 3. L1-2, L2-3 decompressive laminectomy with bilateral facetecomies 4. L1-2, L2-3 Posterior segmental instrumentation 5. [place] of bone marrow from iliac crest 6. Utilization of microsurgical technique and operating microscope Same procedure as scheduled: Yes Indications: Patient has been having chronic back pain and worsening lumbar rad iculopathy. Patient failed multiple conservative management with worsening pain weakness and numbness in her lower extremity. Patient has been having difficulty performing activity of daily living. After discussing risks benefits of treatment options, patient elected proceed with surgery. Surgeon: Varinder Kumari Geothermal Technician: Gregg Retana Click Yes if Unassisted: No Anesthesia Type: General Operative Notes Closure Type: primary Specimen(s): none sent Prosthetic devices, grafts, tissues, transplants, or devices: Globus revolve screws, Rise cages Applied: catheter Estimated Blood Loss (mL): 150 Blood products transfused: none Status at Discharge Cognitive/behavioral status at discharge: at baseline, oriented Functional status at discharge: uses cane/walker Overall status at discharge: patient is progressing back to baseline Time Spent with Patient Time spent: Less than 30 minutes Exam Vital Signs (past 8 hours): Oxygen Delivery Method Room Air Oxygen Flow Rate 0 Narrative Exam Narrative: see progress note Objective Labs Result Diagrams: 11/24/19 05:50 Discharge Plan Discharge Plan Patient Disposition: Home Health Service Discharge orders & Medications Prescriptions: New hydromorphone [Dilaudid] 2 mg tablet 2 mg PO Q4-6H PRN (Reason: Pain (Scale Score 7-10)) Qty: 60 RF: 0 Continued calcium carbonate 260 mg calcium (648 mg) tablet 600 mg PO TID Qty: 0 RF: 0 benazepril-hydrochlorothiazide [Lotensin HCT] 20-12.5 mg Tablet 1 tab PO DAILY RF: 0 potassium chloride 10 mEq Capsule, Extended Release 10 meq PO DAILY RF: 0 omega 9-dtr-xiv-fish oil [Fish Oil] 1,000 mg (120 mg-180 mg) Capsule 1 cap PO QID RF: 0 vitamin C-ovyenkfssrog-hlhgpfd 4,000 units PO DAILY RF: 0 diclofenac sodium [Voltaren] 1 % Gel 1 % topical DAILY RF: 0 cinnamon bark [Cinnamon] 500 mg Capsule 1,000 mg PO DAILY RF: 0 cetirizine 10 mg Capsule 10 mg PO DAILY RF: 0 Discontinued aspirin 325 mg Tablet 650 mg PO Q4-6H PRN (Reason: Pain (Scale Score 1-3)) RF: 0 Follow up/Referrals: Amilcar Menjivar MD [Primary Care Provider] - Varinder Kumari MD [Physician] - Diet/Activity/Treatments Diet: Regular Activity: no excessive bending, lifting, twisting Cold/Heat Therapy: continue cold therapy as needed Skin/Wound/Dressing Care Report to your healthcare provider any signs of infection, such as:: chills, fever, increased pain, unusual drainage and unusual redness Dressing: keep dressing dry. if saturated, contact office for dressing change Visit Report/Discharge Packet Instructions: DI for Prescription Opioid Use, DI for Transforaminal Lumbar Interbody Fusion Stand Alone Forms: Surgery Discharge Visit Report Forms: Patient Portal/API, Stroke Signs & Symptoms Discharge Data Primary Care Provider: Amilcar Menjivar Discharges patient from system. Discharge Date/Time: 11/26/19 15:52 Quality VTE Deep Vein Thrombosis/Pulmonary Embolism Present on Admission: No
== END 2019-11-26 15:52 | disposition home health service (06) | DRG 454 ==
PROVIDERS: Admitting Provider Orthopaedic Surgery Orthopaedic Surgery of the Spine; PCP Internal Medicine; Referring Provider Physical Medicine & Rehabilitation; Visit Provider Orthopaedic Surgery Orthopaedic Surgery of the Spine
PROC: 0SG10AJ Fusion of 2 or more Lumbar Vertebral Joints with Interbody Fusion Device, Posterior Approach, Anterior Column, Open Approach (ICD-10-PCS; principal; 2019-11-23 12:15)
DX: M48.062 Spinal stenosis, lumbar region with neurogenic claudication (principal); G97.41 Accidental puncture or laceration of dura during a procedure; M41.56 Other secondary scoliosis, lumbar region; M43.16 Spondylolisthesis, lumbar region; M47.26 Other spondylosis with radiculopathy, lumbar region; E66.9 Obesity, unspecified; I10 Essential (primary) hypertension; R11.2 Nausea with vomiting, unspecified; G89.18 Other acute postprocedural pain; Z87.891 Personal history of nicotine dependence; Z68.36 Body mass index [BMI] 36.0-36.9, adult
CPT/HCPCS: 36415; 72100; 76000; 85014; 85018; 97116; 97162; 97165; 97530; 97535; C1776; C9290; J0131; J0330; J0690; J1100; J1170; J2060; J2405; J2704; J3010; J8501

== ENCOUNTER → 2020-09-16 12:35 | Outpatient (CLI) | payer MEDICARE, SELFPAY ==
[2019-11-23 10:32] VITALS: BMI 36.2
--- NOTE | 2020-09-16 | DI.MG.S_ITS ---
BILATERAL DIGITAL SCREENING MAMMOGRAM 3D/2D WITH CAD: 09/16/2020 CLINICAL: Routine screening. Personal history of left breast cancer. Family history of breast cancer. Comparison is made to exams dated: 08/26/2019 mammogram, 08/20/2018 mammogram, and 08/19/2017 mammogram - [facility]. There are scattered fibroglandular elements in both breasts. Current study was also evaluated with a Computer Aided Detection (CAD) system. There is a biopsy clip in the right breast. There also are benign post operative findings in the left breast. No significant masses, calcifications, or other findings are seen in either breast. There has been no significant interval change. IMPRESSION: BENIGN There is no mammographic evidence of malignancy. A 1 year screening mammogram is recommended. This exam was interpreted at Station ID: [id number]. NOTE: For mammograms, a report in lay terms will be sent to the patient. Approximately 15% of breast malignancies will not be visualized mammographically. In the management of a palpable breast mass, a negative mammogram must not discourage biopsy of a clinically suspicious lesion. Electronically Signed By: Clay thurston/yumi:09/16/2020 14:13:14 copy to: COY MONTILLA copy to: ANNA FIGUEROA letter sent: Normal Exam ACR BI-RADS Category 2: Benign Finding(s) [id number]
== END ==
PROVIDERS: PCP Internal Medicine; Referring Provider Internal Medicine; Visit Provider Internal Medicine
DX: Z12.31 Encounter for screening mammogram for malignant neoplasm of breast (principal); Z85.3 Personal history of malignant neoplasm of breast; Z80.3 Family history of malignant neoplasm of breast
CPT/HCPCS: 77063; 77067

== ENCOUNTER → 2021-09-25 11:18 | Outpatient (CLI) | payer MEDICARE, SELFPAY ==
[2019-11-23 10:32] VITALS: BMI 36.2
--- NOTE | 2021-09-25 | DI.MG.S_ITS ---
BILATERAL DIGITAL SCREENING MAMMOGRAM 3D/2D WITH CAD: 09/25/2021 CLINICAL: Routine screening. Personal history of left breast cancer. Family history of breast cancer. Comparison is made to exams dated: 09/16/2020 mammogram, 08/26/2019 mammogram, and 08/20/2018 mammogram - [facility]. There are scattered fibroglandular elements in both breasts. Current study was also evaluated with a Computer Aided Detection (CAD) system. There is a biopsy clip in the right breast. There also are benign post operative findings in the left breast. No significant masses, calcifications, or other findings are seen in either breast. There has been no significant interval change. IMPRESSION: BENIGN There is no mammographic evidence of malignancy. A 1 year screening mammogram is recommended. This exam was interpreted at Station ID: [id number]. NOTE: For mammograms, a report in lay terms will be sent to the patient. Approximately 15% of breast malignancies will not be visualized mammographically. In the management of a palpable breast mass, a negative mammogram must not discourage biopsy of a clinically suspicious lesion. Electronically Signed By: Thom juan/yumi:09/25/2021 12:45:02 letter sent: Normal Exam ACR BI-RADS Category 2: Benign Finding(s) [id number]
== END ==
PROVIDERS: PCP Internal Medicine; Referring Provider Internal Medicine; Visit Provider Internal Medicine
DX: Z12.31 Encounter for screening mammogram for malignant neoplasm of breast (principal); Z85.3 Personal history of malignant neoplasm of breast; Z80.3 Family history of malignant neoplasm of breast
CPT/HCPCS: 77063; 77067

== ENCOUNTER → 2022-10-06 12:40 | Outpatient (CLI) | payer MEDICARE, SELFPAY ==
[2019-11-23 10:32] VITALS: BMI 36.2
--- NOTE | 2022-10-06 12:42 | DI.MG.S_ITS ---
BILATERAL DIGITAL SCREENING MAMMOGRAM 3D/2D WITH CAD: 10/06/2022 CLINICAL: Routine screening. Personal history of left breast cancer. Family history of breast cancer. Comparison is made to exams dated: 09/25/2021 mammogram, 09/16/2020 mammogram, 08/26/2019 mammogram, 08/20/2018 mammogram, and 08/19/2017 mammogram - [facility]. There are scattered areas of fibroglandular density in both breasts (category b / 25%-50% glandular tissue). Current study was also evaluated with a Computer Aided Detection (CAD) system. There is a biopsy clip in the right breast. There also are benign post operative findings in the left breast. No significant masses, calcifications, or other findings are seen in either breast. There has been no significant interval change. IMPRESSION: BENIGN There is no mammographic evidence of malignancy. A 1 year screening mammogram is recommended. This exam was interpreted at Station ID: [id number]. NOTE: For mammograms, a report in lay terms will be sent to the patient. Approximately 15% of breast malignancies will not be visualized mammographically. In the management of a palpable breast mass, a negative mammogram must not discourage biopsy of a clinically suspicious lesion. Electronically Signed By: Mayank french/yumi:10/08/2022 09:41:50 letter sent: Normal Exam ACR BI-RADS Category 2: Benign Finding(s) [id number]
== END ==
PROVIDERS: PCP Internal Medicine; Referring Provider Internal Medicine; Visit Provider Internal Medicine
DX: Z12.31 Encounter for screening mammogram for malignant neoplasm of breast (principal); Z85.3 Personal history of malignant neoplasm of breast; Z80.3 Family history of malignant neoplasm of breast
CPT/HCPCS: 77063; 77067

== ENCOUNTER → 2023-09-10 11:04 | Outpatient (CLI) | payer MEDICARE, SELFPAY ==
[2019-11-23 10:32] VITALS: BMI 36.2
--- NOTE | 2023-09-10 | DI.MRI.S_ITS ---
PROCEDURE: MR LUMBAR SPINE WO CON INDICATIONS: radiculopathy lumbar region TECHNIQUE: Noncontrast sagittal T1 spin echo and T2 fast echo, sagittal STIR, and T2 fast spin echo through the lumbar spine. In cases with scoliosis, additional coronal T2 fast spin echo may be performed. COMPARISON: [facility], MR, MR LUMBAR SPINE WO CON, 07/07/2019, 11:23. FINDINGS: Image quality: Excellent. Alignment and Curvature: Levoscoliosis of the lumbar spine with a Ayala angle of 19?. Bone Marrow: Marrow is of normal overall signal. No acute vertebral body compression fractures. Spinal Cord: Conus medullaris terminates at the L1 level. Visualized cord demonstrates normal signal and size. Paraspinous Soft Tissues: No paravertebral masses. T12-L1: A central disc extrusion in the midline extends cephalad 1.4 cm. There is a diffuse disc bulge and facet hypertrophy on the right causing moderate right and no left foraminal stenosis. The disc extrusion indents the anterior thecal sac and causes mild central canal stenosis. L1-L2: Postoperative changes of posterior fixation and discectomy. The foramina and central canal are patent. L2-L3: Postoperative changes of posterior fixation and discectomy. The foramina and central canal are patent. L3-L4: Diffuse disc bulge and facet hypertrophy. Severe bilateral foraminal stenosis. The ligamentum flavum are hypertrophic. Severe central canal stenosis. L4-L5: Diffuse disc bulge and facet hypertrophy on the left cause mild left foraminal stenosis the right foramen is patent. The central canal is patent. L5-S1: Disc space narrowing and diffuse disc bulge with an annular tear in the posterior midline. The left foramen has mild stenosis. The right foramen is patent. The central canal is patent. IMPRESSION: 1. Postoperative changes of L1 through L3 posterior fixation and discectomy. 2. Multilevel lumbar spondylosis causing foraminal and central canal stenosis as detailed above. Central canal stenosis is severe at L3-4. Dictated by: Ramez Crews M.D. on 09/10/2023 at 12:47 Approved by: Ramez Crews M.D. on 09/10/2023 at 12:56
== END ==
PROVIDERS: PCP Internal Medicine; Referring Provider Physical Medicine & Rehabilitation; Visit Provider Physical Medicine & Rehabilitation
DX: M47.26 Other spondylosis with radiculopathy, lumbar region (principal); M47.27 Other spondylosis with radiculopathy, lumbosacral region; M48.061 Spinal stenosis, lumbar region without neurogenic claudication; M48.07 Spinal stenosis, lumbosacral region
CPT/HCPCS: 72148

== ENCOUNTER → 2023-10-23 13:30 | Outpatient (CLI) | payer MEDICARE, SELFPAY ==
[2019-11-23 10:32] VITALS: BMI 36.2
--- NOTE | 2023-10-23 | DI.MG.S_ITS ---
BILATERAL DIGITAL SCREENING MAMMOGRAM 3D/2D WITH CAD: 10/23/2023 CLINICAL: Routine screening. Personal history of left breast cancer. Family history of breast cancer. Comparison is made to exams dated: 10/06/2022 mammogram, 09/25/2021 mammogram, and 09/16/2020 mammogram - [facility]. There are scattered areas of fibroglandular density in both breasts (category b / 25%-50% glandular tissue). Current study was also evaluated with a Computer Aided Detection (CAD) system. There is a biopsy clip in the right breast. There also are benign post operative findings in the left breast. No significant masses, calcifications, or other findings are seen in either breast. There has been no significant interval change. IMPRESSION: BENIGN There is no mammographic evidence of malignancy. A 1 year screening mammogram is recommended. This exam was interpreted at Station ID: [id number]. NOTE: For mammograms, a report in lay terms will be sent to the patient. Approximately 15% of breast malignancies will not be visualized mammographically. In the management of a palpable breast mass, a negative mammogram must not discourage biopsy of a clinically suspicious lesion. Electronically Signed By: Radha childs/yumi:10/23/2023 14:32:11 letter sent: Normal Exam ACR BI-RADS Category 2: Benign Finding(s) [id number]
== END ==
PROVIDERS: PCP Internal Medicine; Referring Provider Internal Medicine; Visit Provider Internal Medicine
DX: Z12.31 Encounter for screening mammogram for malignant neoplasm of breast (principal); Z85.3 Personal history of malignant neoplasm of breast; Z80.3 Family history of malignant neoplasm of breast
CPT/HCPCS: 77063; 77067

== ENCOUNTER → 2024-01-04 10:36 | Outpatient (CLI) | payer MEDICARE, SELFPAY ==
[2019-11-23 10:32] VITALS: BMI 36.2
--- NOTE | 2024-01-04 | DI.MRI.S_ITS ---
PROCEDURE: MR SHOULDER RT WO CON INDICATIONS: rotator cuff syndrome right TECHNIQUE: Noncontrast oblique coronal T2 fast spin echo with fat saturation, oblique sagittal T1 spin echo and T2 fast spin echo with fat saturation, axial T1 spin echo and T2 fast spin echo with fat saturation through the shoulder. COMPARISON: [facility], CR, XR SHOULDER 2+ VIEWS RIGHT, 12/30/2023, 14:21. FINDINGS: Image quality: Images are mildly degraded by patient motion on multiple pulse sequences. Diagnostic information is obtained. Rotator cuff: Small high-grade partial articular sided tearing of the supraspinatus tendon at the anterior insertion measuring 4 mm in anterior-posterior dimension. Moderate supraspinatus and infraspinatus tendinosis. Teres minor tendon is intact. There is moderate subscapularis tendinosis and suspected focal full-thickness tearing at the superior aspect of the distal insertion. No significant rotator cuff muscle atrophy is seen. Bones and bursae: No acute trabecular bone injury or fracture. Small chronic traction cystic changes are seen in the posterior superior humeral head and the greater tuberosity near the rotator cuff tendon insertions. There is moderate cartilage irregularity in the glenohumeral joint with subchondral cystic changes and marginal osteophyte formation. Moderate degenerative changes are seen at the acromioclavicular joint with subchondral cystic changes and edema. Small amount of fluid is seen in the subacromial/subdeltoid bursa. There is a moderate glenohumeral effusion. Capsule and soft tissues: There is diffuse labral degeneration and nearly circumferential chronic degenerative tearing. Proximal biceps long head tendon is completely torn and distally retracted. There is partial effacement of the fat signal in the rotator interval. Glenohumeral ligaments are grossly intact. IMPRESSION: 1. Small focal high-grade partial articular sided tearing of the supraspinatus tendon at the anterior insertion measuring 4 mm in anterior-posterior dimension superimposed on moderate supraspinatus and infraspinatus tendinosis. 2. Moderate subscapularis tendinosis and suspected small focal full-thickness tear at the superior margin of the distal tendon insertion without significant tendon retraction. 3. Complete tearing distal retraction of the proximal biceps long head tendon. 4. 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 Diffuse labral degeneration and chronic degenerative tearing. Moderate glenohumeral effusion. 5. Moderate acromioclavicular joint osteoarthrosis. 6. Small subacromial/subdeltoid bursal effusion or mild bursitis. Approved by: Clay Andre M.D. on 01/06/2024 at 10:46
== END ==
LOC: MRI 10:37
PROVIDERS: PCP Internal Medicine; Referring Provider Orthopaedic Surgery; Visit Provider Orthopaedic Surgery
DX: M75.111 Incomplete rotator cuff tear or rupture of right shoulder, not specified as traumatic (principal); S46.111A Strain of muscle, fascia and tendon of long head of biceps, right arm, initial encounter; M19.011 Primary osteoarthritis, right shoulder; M94.211 Chondromalacia, right shoulder; M25.411 Effusion, right shoulder
CPT/HCPCS: 73221

== ENCOUNTER → 2024-01-08 14:31 | Outpatient (CLI) | payer MEDICARE, SELFPAY ==
[2019-11-23 10:32] VITALS: BMI 36.2
== END ==
PROVIDERS: PCP Internal Medicine; Referring Provider Orthopaedic Surgery; Visit Provider Orthopaedic Surgery
DX: Z01.818 Encounter for other preprocedural examination (principal)
CPT/HCPCS: 93005

== ENCOUNTER → 2024-05-25 10:58 | Outpatient (CLI) | payer MEDICARE, SELFPAY ==
[2019-11-23 10:32] VITALS: BMI 36.2
--- NOTE | 2024-05-25 11:01 | DI.RAD.S_ITS ---
PROCEDURE: XR DEXA AXIAL SKELETON INDICATIONS: Other specified disorders of bone density and stru COMPARISON: None. FINDINGS: Lumbar Spine: Not evaluated due to prior fusion of L1 through L3 levels. Left Hip: Bone mineral density 1.083 g/cm2, T score 1.2. Left Femoral Neck: Bone mineral density 0.818 g/cm2, T score -0.3. Right Hip: Bone mineral density 1.031 g/cm2, T score 0.7. Right Femoral Neck: Bone mineral density 0.865 g/cm2, T score 0.1. Left Forearm: Bone mineral density 0.782 g/cm2, T score 1.5. Fracture Risk Calculation (when applicable): 10-year fracture risk of a major osteoporotic fracture 7.6% and of a hip fracture 1.2%. (T score greater or equal to -1.0 to: NORMAL) (T score from -1.1 to -2.4: OSTEOPENIA) (T score less than or equal to -2.5: OSTEOPOROSIS) IMPRESSION: Normal bone mineral density. Mildly increased 10 year fracture risk as above. Follow-up guidelines as follows: Osteoporosis: Consider a repeat DEXA and Vertebral Fracture Assessment (VFA) exam in 2 years or sooner if medically necessary, to reassess this patient's status. Osteopenia: Consider a repeat DEXA in 2-3 years to reassess this patient's status, or if there is a new clinical indication. Normal: Consider a repeat DEXA in 5 years or sooner, or if there is a new clinical indication. All treatment decisions require clinical judgment and consideration of individual patient factors, including patient preferences, comorbidities, previous drug use, risk factors not captured in the FRAX model (e.g., frailty, falls, vitamin D deficiency, increased bone turnover, interval significant decline in bone density ) and possible under- or over-estimation of fracture risk by FRAX. In addition, the NOF Guide recommends that FDA-approved medical therapies be considered in postmenopausal women and men age >= 50 years with a: * Hip or vertebral (clinical or morphometric) fracture * T-score of <=-2.5 at the spine or hip * Ten-year fracture probability by FRAX of >= 3% for hip fracture or >=20% for major osteoporotic fracture. People with diagnosed cases of osteoporosis or at high risk for fracture should have regular bone mineral density tests. For patients eligible for Medicare, routine testing is allowed once every 2 years. The testing frequency can be increased to one year for patients who have rapidly progressing disease, those who are receiving or discontinuing medical therapy to restore bone mass, or have additional risk factors. Dictated by: Adrián Gayle M.D. on 05/25/2024 at 17:41 Approved by: Adrián Gayle M.D. on 05/25/2024 at 17:43
== END ==
PROVIDERS: PCP Internal Medicine; Referring Provider Student in an Organized Health Care Education/Training Program; Visit Provider Student in an Organized Health Care Education/Training Program
DX: M85.89 Other specified disorders of bone density and structure, multiple sites (principal)
CPT/HCPCS: 77080; 77081

== ENCOUNTER → 2024-11-28 14:33 | Outpatient (CLI) | payer MEDICARE, SELFPAY ==
[2019-11-23 10:32] VITALS: BMI 36.2
--- NOTE | 2024-11-28 14:34 | DI.MG.S_ITS ---
BILATERAL DIGITAL SCREENING MAMMOGRAM 3D/2D WITH CAD POST LUMPECTOMY: 11/28/2024 CLINICAL: Routine screening. Personal history of left breast cancer. Family history of breast cancer. Comparison is made to exams dated: 10/23/2023 mammogram, 10/06/2022 mammogram, and 09/25/2021 mammogram - [facility]. There are scattered areas of fibroglandular density (category b / 25%-50% glandular tissue). Current study was also evaluated with a Computer Aided Detection (CAD) system. There is a biopsy clip in the right breast. There also are benign post operative findings in the left breast. No significant masses, calcifications, or other findings are seen in either breast. There has been no significant interval change. IMPRESSION: BENIGN There is no mammographic evidence of malignancy. A 1 year screening mammogram is recommended. This exam was interpreted at Station ID: [id number]. NOTE: For mammograms, a report in lay terms will be sent to the patient. Approximately 15% of breast malignancies will not be visualized mammographically. In the management of a palpable breast mass, a negative mammogram must not discourage biopsy of a clinically suspicious lesion. Electronically Signed By: Thom juan/yumi:11/30/2024 07:46:54 letter sent: Normal Exam ACR BI-RADS Category 2: Benign
== END ==
PROVIDERS: PCP Internal Medicine; Referring Provider Internal Medicine; Visit Provider Internal Medicine
DX: Z12.31 Encounter for screening mammogram for malignant neoplasm of breast (principal); Z85.3 Personal history of malignant neoplasm of breast; Z80.3 Family history of malignant neoplasm of breast
CPT/HCPCS: 77063; 77067

== ENCOUNTER → 2025-03-11 12:41 | Outpatient (CLI) | payer MEDICARE, SELFPAY ==
[2019-11-23 10:32] VITALS: BMI 36.2
--- NOTE | 2025-03-11 12:44 | DI.MRI.S_ITS ---
PROCEDURE: MR THORACIC SPINE WO CON INDICATIONS: postlaminectomy TECHNIQUE: Noncontrast sagittal T1 spine echo and T2 fast spin echo, sagittal STIR, and T2 fast spin echo through the thoracic spine. COMPARISON: None. FINDINGS: Image quality: Excellent. Alignment and Curvature: Dextroconvex thoracic scoliosis is seen. No focal AP alignment abnormality is seen. Bone Marrow: Marrow is of normal overall signal. No acute vertebral body compression fractures. Spinal Cord: Visualized spinal cord is normal in size and signal. Paraspinous Soft Tissues: No paravertebral masses. Miscellaneous: Lumbar fixation hardware is partially seen. At T8-T9, there is mild central canal narrowing from disc bulge and hypertrophy of the posterior elements. There is mild left-sided and no right-sided neural foraminal narrowing. At T9-T10 there is minimal central canal narrowing and moderate bilateral neural foraminal narrowing. At T10-T11, there is mild loss of disc height seen. Mild to moderate disc bulge is seen. There is [id number] central canal narrowing, which is partially caused by hypertrophied posterior elements. Moderate bilateral neural foraminal narrowing is seen. At T11-T12, no significant abnormality is seen. At T12-L1, there is mild disc space narrowing, with mild generalized disc bulge. There is a superimposed central disc osteophyte protrusion. Mild facet joint hypertrophy is seen. There is at least moderate right-sided and mild left-sided neural foraminal narrowing. Mild central canal narrowing is seen. Milder degenerative changes are seen elsewhere. IMPRESSION: Dextroconvex thoracic scoliosis and multiple levels of degenerative change can be seen, which are overall worst at T10-T11 and T12-L1. Lumbar spine fixation hardware is partially seen. Dictated by: Tung Obrien M.D. on 03/11/2025 at 13:59 Approved by: Tung Obrien M.D. on 03/11/2025 at 14:04
== END ==
PROVIDERS: PCP Family Medicine; Referring Provider Family Medicine; Visit Provider Physician Assistant
DX: M96.1 Postlaminectomy syndrome, not elsewhere classified (principal); M47.814 Spondylosis without myelopathy or radiculopathy, thoracic region; M47.815 Spondylosis without myelopathy or radiculopathy, thoracolumbar region; M41.9 Scoliosis, unspecified
CPT/HCPCS: 72146

== ENCOUNTER → 2025-05-03 10:25 | Outpatient (CLI) | payer MEDICARE, SELFPAY ==
[2019-11-23 10:32] VITALS: BMI 36.2
[2025-05-03 11:05] LABS: Add Manual Diff / Slide Review NO; Hematocrit 40.5 % (36-46); Hemoglobin 13.9 g/dL (12.0-16.0); Lymphocytes Absolute Auto 2500 /uL (1100-4500); Mean Corpuscular HGB Conc 34.4 % (30-36); Mean Corpuscular Hemoglobin 31.3 PG (26-34); Mean Corpuscular Volume 91.1 fL (80-100); Platelet Count 194 X10^3/uL (150-400)
[2025-05-03 11:19] LABS: Hemoglobin A1C% w Est Avg Glu 5.9 % (4.0-6.0)
[2025-05-03 11:27] LABS: Alanine Aminotransferase 21 IU/L (<35); Albumin 4.5 g/dL (3.5-5.0); Albumin Globulin Ratio 1.6 (1.0-2.8); Alkaline Phosphatase 75 U/L (38-126); Blood Urea Nitrogen 17 mg/dL (7-17); Calcium 10.1 mg/dL (8.4-10.2); Carbon Dioxide 21 mmol/L (22-32); Chloride 105 mmol/L (98-107); Cholesterol 204 mg/dL (140-199); Estimated Glomerular Filt Rate > 60 mL/min (>60); Globulin 2.8 g/dL (1.7-4.1); Glucose 122 mg/dL (70-99); HDL Cholesterol 51 mg/dL (40-60); HEMOLYSIS < 15 (0-50); Potassium 4.0 mmol/L (3.4-5.1); Sodium 136 mmol/L (137-145); Total Protein 7.3 g/dL (6.3-8.2); Triglycerides 275 mg/dL (35-150)
== END ==
PROVIDERS: PCP Family Medicine; Referring Provider Family Medicine; Visit Provider Family Medicine
DX: I10 Essential (primary) hypertension (principal); Z79.899 Other long term (current) drug therapy; Z68.33 Body mass index [BMI] 33.0-33.9, adult
CPT/HCPCS: 36415; 80053; 80061; 83036; 85025

== ENCOUNTER → 2025-09-09 13:26 | Outpatient (CLI) | payer MEDICARE, SELFPAY ==
[2019-11-23 10:32] VITALS: BMI 36.2
== END ==
LOC: CAR 13:27
PROVIDERS: PCP Family Medicine; Referring Provider Family Medicine; Visit Provider Family Medicine
DX: I48.91 Unspecified atrial fibrillation (principal); I48.92 Unspecified atrial flutter
CPT/HCPCS: 93246

== ENCOUNTER → 2025-10-11 14:41 | Outpatient (CLI) | payer MEDICARE, SELFPAY ==
[2019-11-23 10:32] VITALS: BMI 36.2
[2025-10-11 15:13] LABS: Hemoglobin A1C% w Est Avg Glu 6.0 % (4.0-6.0)
[2025-10-11 15:31] LABS: Alanine Aminotransferase 21 IU/L (<35); Albumin 4.7 g/dL (3.5-5.0); Albumin Globulin Ratio 1.7 (1.0-2.8); Alkaline Phosphatase 74 U/L (38-126); Blood Urea Nitrogen 16 mg/dL (7-17); Calcium 10.2 mg/dL (8.4-10.2); Carbon Dioxide 27 mmol/L (22-32); Chloride 100 mmol/L (98-107); Estimated Glomerular Filt Rate > 60 mL/min (>60); Globulin 2.8 g/dL (1.7-4.1); Glucose 119 mg/dL (70-99); HEMOLYSIS < 15 (0-50); Magnesium 1.9 mg/dL (1.6-2.3); Potassium 3.9 mmol/L (3.4-5.1); Sodium 137 mmol/L (137-145); Total Protein 7.5 g/dL (6.3-8.2)
[2025-10-11 16:04] LABS: TSH w/ Reflex to FT4 1.04 uIU/mL (0.47-4.68)
== END ==
PROVIDERS: PCP Family Medicine; Referring Provider Family Medicine; Visit Provider Family Medicine
DX: I44.2 Atrioventricular block, complete (principal); R73.03 Prediabetes; I48.0 Paroxysmal atrial fibrillation; I49.3 Ventricular premature depolarization; I49.1 Atrial premature depolarization; I10 Essential (primary) hypertension
CPT/HCPCS: 36415; 80053; 83036; 83735; 84443

== ENCOUNTER → 2025-10-15 | Outpatient (CLI) | payer MEDICARE, SELFPAY ==
[2019-11-23 10:32] VITALS: BMI 36.2
== END ==
LOC: ECHO 08:54
PROVIDERS: PCP Family Medicine; Referring Provider Family Medicine; Visit Provider Family Medicine
DX: I44.2 Atrioventricular block, complete (principal); I48.0 Paroxysmal atrial fibrillation; I49.3 Ventricular premature depolarization; I49.1 Atrial premature depolarization; I10 Essential (primary) hypertension; R73.03 Prediabetes
CPT/HCPCS: 93306